=== PATIENT | female | born 1940 | race Hispanic/Latino ===

== ENCOUNTER 2017-07-28 14:08 | Inpatient (IN) | payer MEDICARE, BC ==
[2017-07-28 14:15] VITALS: BMI 23.3
--- NOTE | 2017-07-28 14:45 | ED PDOC ---
Arrival/HPI - General Chief Complaint: GI Problem Time Seen by Provider: 07/28/17 14:38 Historian: Patient - History of Present Illness Narrative History of Present Illness (Text): 07/28/17 14:39 Tarsha Zamorano is a 76 year old female who presents to the emergency department complaining of generalized weakness and near syncope for a few days. Patient states that she had many near falls in the past few days. Patient also notes that she experiences constipation, and urinary incontinence for a few weeks. Patient denies any fever, chills, chest pain, shortness of breath, or any other complaints. PMD: Dr. Daryn Brannon Time/Duration: < week Symptom Onset: Gradual Symptom Course: Unchanged Activities at Onset: Light Context: Home Past Medical History - Provider Review Nursing Documentation Reviewed: Yes - Infectious Disease Hx of Infectious Diseases: None - Reproductive Menopause: Yes Family/Social History - Physician Review Nursing Documentation Reviewed: Yes Family/Social History: No Known Family HX Allergies/Home Meds Allergies/Adverse Reactions: Allergies Unobtainable Allergy (Verified 07/28/17 15:28) Home Medications: Home Meds Medication Instructions Recorded Confirmed ALPRAZolam [Xanax] 0.5 mg PO Q6 PRN 07/28/17 07/28/17 Folic Acid [Folic Acid] 3 mg PO TID 07/28/17 07/28/17 Methotrexate Sodium [Trexall] 17.5 mg PO MON 07/28/17 07/28/17 Metoprolol Tartrate [Lopressor] 25 mg PO DAILY 07/28/17 07/28/17 Omeprazole [Omeprazole] 20 mg PO DAILY 07/28/17 07/28/17 Sertraline [Zoloft] 50 mg PO DAILY 07/28/17 07/28/17 Simvastatin [Zocor] 20 mg PO DAILY 07/28/17 07/28/17 traMADol [Ultram] 50 mg PO Q6 PRN 07/28/17 07/28/17 Review of Systems - Physician Review All systems were reviewed & negative as marked: Yes - Review of Systems Constitutional: Other (generalized weakness). absent: Fevers, Night Sweats Eyes: absent: Vision Changes ENT: absent: Hearing Changes Respiratory: absent: SOB, Cough Cardiovascular: absent: Chest Pain Gastrointestinal: absent: Abdominal Pain Genitourinary Female: absent: Dysuria, Frequency Musculoskeletal: absent: Arthralgias Skin: absent: Rash, Pruritis Neurological: Other (Near syncope). absent: Headache Endocrine: absent: Diaphoresis, Polyuria Hemo/Lymphatic: absent: Adenopathy Psychiatric: absent: Anxiety, Depression Physical Exam - Physical Exam Narrative Physical Exam (Text): Constitutional: No acute distress. Head: Normocephalic. Atraumatic. Eyes: PERRL. ENT: Moist mucous membranes. Neck: Supple. Cardiovascular: Regular rate. Chest: No tenderness. Respiratory: Clear to auscultation bilaterally. GI: Soft. Nontender. Nondistended. Back: No CVA tenderness. Musculoskeletal: No tenderness or swelling of extremities. Skin: No rash. Neurologic: Alert, no focal deficit. Vital Signs Reviewed: Yes Vital Signs Temp Pulse Resp BP Pulse Ox 07/28/17 18:14 69 18 130/65 98 07/28/17 16:33 71 18 135/61 98 07/28/17 15:40 79 18 138/64 98 07/28/17 14:15 98.6 F 82 18 140/63 99 Temperature: Afebrile Blood Pressure: Normal Pulse: Regular Respiratory Rate: Normal Appearance: Positive for: Well-Appearing, Non-Toxic, Comfortable Pain Distress: None Mental Status: Positive for: Alert and Oriented X 3 Medical Decision Making ED Course and Treatment: 07/28/17 14:46 Impression: 76 year old female who presents to the emergency department complaining of generalized weakness and near syncope for a few days. Plan: -- Reassess and disposition Progress Notes: 07/28/17 16:19 FINDINGS: LUNGS: Compressive atelectasis affecting left lower lobe and lingula. Less pronounced compressive atelectasis left upper lobe. PLEURA: Large left pleural effusion displacing mediastinal structures to the right. CARDIOVASCULAR: Normal. OSSEOUS STRUCTURES: No significant abnormalities. VISUALIZED UPPER ABDOMEN: Normal. OTHER FINDINGS: None. IMPRESSION: Large left pleural effusion, compressive atelectasis left lung. 07/28/17 18:40 PROCEDURE: CT Abdomen and Pelvis with contrast HISTORY: abd pain COMPARISON: None. TECHNIQUE: Contrast dose: 100 mL Omnipaque 350 359.65 Radiation dose: Total exam DLP = 359.65 mGy-cm. This CT exam was performed using one or more of the following dose reduction techniques: Automated exposure control, adjustment of the mA and/or kV according to patient size, and/or use of iterative reconstruction technique. FINDINGS: LOWER THORAX: Large left pleural effusion with complete atelectasis of left lower lobe and subsegmental atelectasis of left upper lobe. No right pleural effusion. Large right-sided hiatal hernia. Question is raised as to possible prior gastric pull up procedure. However, there is no central anastomosis evident. There is mural thickening of the herniated stomach. Consider evaluation with endoscopy to rule out neoplastic disease. LIVER: Numerous ill-defined hepatic masses likely representing hepatic metastasis. These vary in size. The largest measures approximately 5.2 cm in diameter peer no biliary dilatation. Smooth contour. Normal size. GALLBLADDER AND BILE DUCTS: Gallbladder not visualized. Suspect prior cholecystectomy. PANCREAS: Unremarkable. No gross lesion or ductal dilatation. SPLEEN: Unremarkable. ADRENALS: Unremarkable. No mass. KIDNEYS AND URETERS: Multiple bilateral renal cortical cysts. Moderate right renal atrophy. Nonspecific. No hydronephrosis. VASCULATURE: Fusiform infrarenal abdominal aortic aneurysm, 3.9 cm in greatest A-P diameter. Extensive mural thrombus. BOWEL: Unremarkable. No obstruction. No gross mural thickening. APPENDIX: Not definitely identified. No secondary findings. PERITONEUM: Intermediate density mass in the cul-de-sac, 4.3 x 5.8 x 6.3 cm. Uncertain significance. Correlate with ultrasound. Trace fluid in cul-de-sac. No generalized ascites. No pneumoperitoneum. LYMPH NODES: Unremarkable. No enlarged lymph nodes. BLADDER: Poorly distended REPRODUCTIVE: Unremarkable uterus BONES: Right hip arthroplasty. Grade 1 anterolisthesis L4-5 without spondylolysis. OTHER FINDINGS: None. IMPRESSION: Suspect widespread hepatic metastasis of uncertain primary. Large right-sided herniation of stomach versus gastric pull-up procedure. Mural thickening of the herniated stomach raises suspicion of gastritis versus neoplasm. Correlate with endoscopy. Large left pleural effusion with complete atelectasis of left lower lobe and subsegmental atelectasis of left upper lobe. Fusiform infrarenal abdominal aortic aneurysm. Moderate right renal atrophy. BI-RADS oral renal cortical cysts. Nonspecific circumscribed mass in cul-de-sac, 6.3 cm greatest dimension. Correlate with pelvic ultrasound examination. Dr. Brannon accepts patient to his service. Dr. Crocker consulted for GI. - Lab Interpretations Lab Results: 07/28/17 14:30 07/28/17 14:30 Lab Results 07/28/17 16:55: Urine Color Yellow, Urine Appearance Clear, Urine pH 6.5, Ur Specific [place] 1.020, Urine Protein 100 H, Urine Glucose (UA) Negative, Urine Ketones Negative, Urine Blood Small H, Urine Nitrate Negative, Urine Bilirubin Small H, Urine Urobilinogen 0.2, Ur Leukocyte Esterase Negative, Urine RBC 0 - 2 , Urine WBC Negative, Ur Epithelial Cells 1 - 3 07/28/17 14:49: POC Glucose (mg/dL) 93 07/28/17 14:30: Sodium 146, Potassium 3.9, Chloride 104, Carbon Dioxide 26, Anion Gap 20, BUN 25 H, Creatinine 1.2, Est GFR ( Amer) 53, Est GFR (Non- Af Amer) 43, Random Glucose 97, Calcium 10.0, Total Bilirubin 0.8, AST 63 H, ALT 28, Alkaline Phosphatase 169 H, Total Creatine Kinase 38, Troponin I < 0.01 , Total Protein 7.1, Albumin 3.7, Globulin 3.5, Albumin/Globulin Ratio 1.1, Lipase 60 07/28/17 14:30: PT 13.9 H, INR 1.21 H, APTT 36.6 H 07/28/17 14:30: WBC 15.2 H, RBC 4.43, Hgb 13.2, Hct 40.5, MCV 91.4, MCH 29.8, MCHC 32.6, RDW 17.7 H, Plt Count 395, MPV 9.2, Gran % 84.4 H, Lymph % (Auto) 7.2 L, [place] % (Auto) 7.6 H, Eos % (Auto) 0.5 L, Baso % (Auto) 0.3, Gran # 12.84 H, Lymph # (Auto) 1.1 L, [place] # (Auto) 1.2 H, Eos # (Auto) 0.1, Baso # (Auto) 0.05 - RAD Interpretation Radiology Orders: 07/28/17 15:33 CHEST PORTABLE [RAD] Stat 07/28/17 15:35 ABD & PELVIS IV CONTRAST ONLY [CT] Stat - Scribe Statement The provider has reviewed the documentation as recorded by the Lbibashok Adames Provider Scribe Attestation: All medical record entries made by the Scribe were at my direction and personally dictated by me. I have reviewed the chart and agree that the record accurately reflects my personal performance of the history, physical exam, medical decision making, and the department course for this patient. I have also personally directed, reviewed, and agree with the discharge instructions and disposition. Disposition/Present on Arrival - Present on Arrival Any Indicators Present on Arrival: No History of DVT/PE: No History of Uncontrolled Diabetes: No Urinary Catheter: No History of Decub. Ulcer: No History Surgical Site Infection Following: None - Disposition Have Diagnosis and Disposition been Completed?: Yes Diagnosis: Near syncope, Hepatic metastases Disposition: HOSPITALIZED Disposition Time: 17:50 Patient Plan: Admission Condition: GUARDED
[2017-07-28 15:49] LABS: BASO # 0.05 K/mm3 (0.0-2.0); BASO % 0.3 % (0.0-3.0); EOS # 0.1 (0.0-0.7); EOS % 0.5 % (1.5-5.0); GRAN # 12.84 (1.4-6.5); GRAN % 84.4 % (50.0-68.0); HEMOGLOBIN 13.2 g/dL (12.0-16.0); LYMPH # 1.1 (1.2-3.4); LYMPH % 7.2 % (22.0-35.0); MEAN CELL VOLUME 91.4 fl (80.0-105.0); MEAN CORPUSCULAR HEMOGLOBIN 29.8 pg (25.0-35.0); MEAN CORPUSCULAR HGB CONC 32.6 g/dl (31.0-37.0); MEAN PLATELET VOLUME 9.2 fl (7.0-11.0); MONO # 1.2 (0.1-0.6); MONO % 7.6 % (1.0-6.0); RBC 4.43 10^6/uL (3.5-6.1); RED CELL DISTRIBUTION WIDTH 17.7 % (11.5-14.5); WHITE BLOOD COUNT 15.2 10^3/ul (4.5-11.0)
[2017-07-28 15:57] LABS: INR 1.21 (0.93-1.08); PROTHROMBIN TIME 13.9 SECONDS (9.4-12.5)
[2017-07-28 15:58] LABS: PARTIAL THROMBOPLASTIN TIME 36.6 Seconds (25.1-36.5)
[2017-07-28 16:05] LABS: ALB/GLOB RATIO 1.1 (1.1-1.8); ALBUMIN 3.7 g/dL (3.0-4.8); ALT/SGPT 28 U/L (7-56); AST/SGOT 63 U/L (14-36); BLOOD UREA NITROGEN 25 mg/dL (7-21); GFR AFRICAN-AMERICAN 53; GFR NON-AFRICAN AMERICAN 43; LIPASE 60 U/L (23-300)
[2017-07-28 16:16] LABS: TROPONIN I < 0.01 ng/mL
--- NOTE | 2017-07-28 16:18 | RAD ---
HISTORY: near syncope COMPARISON: No prior. FINDINGS: LUNGS: Compressive atelectasis affecting left lower lobe and lingula. Less pronounced compressive atelectasis left upper lobe. PLEURA: Large left pleural effusion displacing mediastinal structures to the right. CARDIOVASCULAR: Normal. OSSEOUS STRUCTURES: No significant abnormalities. VISUALIZED UPPER ABDOMEN: Normal. OTHER FINDINGS: None. IMPRESSION: Large left pleural effusion, compressive atelectasis left lung.
[2017-07-28] MEDS ORDERED: Iohexol 350 MG/100 ML VIAL ONE (16:42)
[2017-07-28 17:22] LABS: PH,URINE 6.5 (4.7-8.0); URINE APPEARANCE CLEAR (CLEAR); URINE BILIRUBIN SMALL (NEGATIVE); URINE BLOOD SMALL (NEGATIVE); URINE COLOR YELLOW (YELLOW); URINE GLUCOSE (UA) NEGATIVE (NEGATIVE); URINE LEUKOCYTE ESTERASE NEGATIVE Leu/uL (NEGATIVE); URINE PROTEIN 100 mg/dL (<30 mg/dL); URINE UROBILINOGEN 0.2 E.U./dL (<1 E.U./dL)
[2017-07-28 17:31] LABS: URINE RBC 0 - 2 /hpf (0-2); URINE WBC NEGATIVE /hpf (0-6)
--- NOTE | 2017-07-28 17:47 | CT ---
PROCEDURE: CT Abdomen and Pelvis with contrast HISTORY: abd pain COMPARISON: None. TECHNIQUE: Contrast dose: 100 mL Omnipaque 350 359.65 Radiation dose: Total exam DLP = 359.65 mGy-cm. This CT exam was performed using one or more of the following dose reduction techniques: Automated exposure control, adjustment of the mA and/or kV according to patient size, and/or use of iterative reconstruction technique. FINDINGS: LOWER THORAX: Large left pleural effusion with complete atelectasis of left lower lobe and subsegmental atelectasis of left upper lobe. No right pleural effusion. Large right-sided hiatal hernia. Question is raised as to possible prior gastric pull up procedure. However, there is no central anastomosis evident. There is mural thickening of the herniated stomach. Consider evaluation with endoscopy to rule out neoplastic disease. LIVER: Numerous ill-defined hepatic masses likely representing hepatic metastasis. These vary in size. The largest measures approximately 5.2 cm in diameter peer no biliary dilatation. Smooth contour. Normal size. GALLBLADDER AND BILE DUCTS: Gallbladder not visualized. Suspect prior cholecystectomy. PANCREAS: Unremarkable. No gross lesion or ductal dilatation. SPLEEN: Unremarkable. ADRENALS: Unremarkable. No mass. KIDNEYS AND URETERS: Multiple bilateral renal cortical cysts. Moderate right renal atrophy. Nonspecific. No hydronephrosis. VASCULATURE: Fusiform infrarenal abdominal aortic aneurysm, 3.9 cm in greatest A-P diameter. Extensive mural thrombus. BOWEL: Unremarkable. No obstruction. No gross mural thickening. APPENDIX: Not definitely identified. No secondary findings. PERITONEUM: Intermediate density mass in the cul-de-sac, 4.3 x 5.8 x 6.3 cm. Uncertain significance. Correlate with ultrasound. Trace fluid in cul-de-sac. No generalized ascites. No pneumoperitoneum. LYMPH NODES: Unremarkable. No enlarged lymph nodes. BLADDER: Poorly distended REPRODUCTIVE: Unremarkable uterus BONES: Right hip arthroplasty. Grade 1 anterolisthesis L4-5 without spondylolysis. OTHER FINDINGS: None. IMPRESSION: Suspect widespread hepatic metastasis of uncertain primary. Large right-sided herniation of stomach versus gastric pull-up procedure. Mural thickening of the herniated stomach raises suspicion of gastritis versus neoplasm. Correlate with endoscopy. Large left pleural effusion with complete atelectasis of left lower lobe and subsegmental atelectasis of left upper lobe. Fusiform infrarenal abdominal aortic aneurysm. Moderate right renal atrophy. BI-RADS oral renal cortical cysts. Nonspecific circumscribed mass in cul-de-sac, 6.3 cm greatest dimension. Correlate with pelvic ultrasound examination.
[2017-07-29] MEDS: Pantoprazole 40 mg EC Tab PO SCH (08:46)
--- NOTE | 2017-07-29 12:55 | CARD ---
APPROVED REPORT EKG Measurement Heart [id number] DC [id number] [id number] <Conclusion> Sinus rhythm.
--- NOTE | 2017-07-29 17:55 | CT ---
PROCEDURE: CT chest dated 07/29/2017. HISTORY: Left lung collapse as per Obi COMPARISON: Comparison made with chest radiograph 07/28/2017. Comparison also made with CT scan of the abdomen pelvis dated 07/28/2017 which imaged both lung bases. TECHNIQUE: Contiguous axial images were obtained through the chest without intravenous contrast enhancement. Sagittal and coronal reconstructions were performed. Radiation dose (DLP): 1st mGy-cm. This CT exam was performed using one or more of the following dose reduction techniques: Automated exposure control, adjustment of the mA and/or kV according to patient size, and/or use of iterative reconstruction technique. FINDINGS: LUNGS: The current study reveals large left-sided effusion possibly with questionable of loculated components at the level of the upper lobe/lung apex. . There is only minor atelectatic component of. These changes in factor seen to better advantage on prior contrast-enhanced CT scan of the abdomen and pelvis which imaged most of the lung medrano are demonstrated most of the opacification is large effusion with smaller component of atelectatic lung. There also appears to be some nodular scarring changes left lung apex. Centrilobular emphysematous changes are also present. Localized eventration and/or large paraesophageal hernia right medial lung base through which extends a good portion of the stomach. . There are multiple nodular densities seen throughout the right mid to lower lung field likely representing metastatic disease. No evidence of pneumothorax. MEDIASTINUM: There is shift of the mediastinum from left to right due the large effusion. Heart size is within range of normal. Few small nonspecific mediastinal lymph nodes are present. Mass lesion in the left hilar region is less well seen due to the lack of circulating intravenous contrast material on this exam. . Note that this lesion appears to lower lobe bronchi. No evidence of pneumothorax. BONES: Multilevel degenerative spondylosis of the thoracic spine. No suspicious lytic or blastic lesions are identified within the thoracic or visualized portions of the lower cervical upper/ lumbar spine. Mild diffuse demineralization. UPPER ABDOMEN: Previously noted multiple on low-attenuation lesions (presumed metastatic deposits) scattered throughout the hepatic parenchyma are less well seen on this study as compared the prior exam due to the lack of circulating intravenous contrast material on the current exam. OTHER FINDINGS: Enlarged heterogeneous left lobe thyroid gland with a few scattered calcifications. . . There is also of localized enlargement of the isthmus. Right lobe thyroid gland is slightly heterogeneous as well. Followup thyroid ultrasound could be performed for further evaluation. IMPRESSION: Large left-sided effusion with smaller of atelectatic component in the left upper and lower lobes. There appears to be a large masslike lesion in the left hilar region seen to better advantage on prior CT scan due to the lack of circulating intravenous contrast material on this CT chest. The there is resultant left-sided mediastinal shift. Several small nodular densities scattered throughout the right lower lobe likely representing metastatic deposits. Centrilobular emphysematous changes. Multiple metastatic lesions scattered throughout the hepatic parenchyma less well seen also due the lack of circulating intravenous contrast material on the current study See above discussion for additional details and findings.
--- NOTE | 2017-07-30 02:05 | PN ---
DATE: 07/29/2017 The patient is a 76-year-old female who presented to the emergency room complaining of generalized weakness. Workup showed some elevation of her liver enzymes. Chest x-ray showed a large left-sided pleural effusion and CAT scan of the abdomen showed multiple hepatic metastatic lesions. There is a thickening in the stomach wall. There was a mass in the cul-de-sac. There was an infrarenal abdominal aortic aneurysm. When seen today, the patient is in bed. She is awake, alert, and oriented. She is very emotional, tearful at times. She understands her diagnosis. I explained to the patient that we certainly have to go through the steps to find the source of these metastatic lesions in her liver. The patient will undergo ultrasound of the abdomen and pelvis to better understand the cul-de-sac mass. The patient will be evaluated by milled rice broker, Dr. Ochoa, and Dr. Andrews. The patient will be reevaluated in the morning. Eddie Brannon MD
--- NOTE | 2017-07-30 02:54 | HP ---
ADMITTING HISTORY AND PHYSICAL HISTORY OF PRESENT ILLNESS: The patient is a 76-year-old female who has been experiencing increasing weakness over the past 3 weeks. As per the patient, she was barely able to ambulate in her home, holding onto taylor. Finally, she asked a friend to bring her to the hospital where she is evaluated and admitted. PAST MEDICAL HISTORY: The patient is known to have a past medical history positive for rheumatoid arthritis, hypertension, anxiety and depression and hyperlipidemia. MEDICATIONS AT THE TIME OF ADMISSION: Include methotrexate 2.5 mg, she takes 7 tablets every Monday; metoprolol tartrate 25 mg once a day; Zoloft 50 mg once a day, simvastatin 20 mg once a day; omeprazole 20 mg once a day. ALLERGIES: SHE HAS NO KNOWN MEDICAL ALLERGIES. SOCIAL HISTORY: She is a . Her daughter lives in [place]. She is a former smoker and nonalcoholic drinker. PHYSICAL EXAMINATION: HEENT: The head, eyes, ears, nose and throat a re unremarkable. NECK: Supple with no lymphadenopathy. No goiter. LUNGS: On pulmonary auscultation, there is dullness over the left lower lung area. The left upper lung and right-sided is clear. HEART: Regular. No murmurs are appreciated. Abdomen is soft and nontender. EXTREMITIES: Free of cyanosis, clubbing or edema. NEUROLOGICALLY: The patient is awake, alert and oriented with no focal neurological signs. LABORATORY DATA: Laboratory studies show the white blood cell count to be 15.2, hemoglobin and hematocrit are 13.2 and 40.5 respectively, platelet count is 395. Sodium is 146, potassium 3.9, blood urea nitrogen is 25, creatinine 1.2, glucose is 97, AST is 63, ALT is 28 and alkaline phosphatase is elevated at 169. Her blood pressure is 130/65 and heart rate is 88. Chest x-ray showed large left pleural effusion. CAT scan of the abdomen shows a right-sided hiatal hernia, multiple hepatic metastatic lesions. There is a thickening in the area of the stomach. There is an infrarenal abdominal aortic aneurysm. There seems to be a 4.3 x 6.3 x 6.3 mass in the cul-de-sac. EKG shows regular sinus rhythm with PVCs. IMPRESSION: The patient is admitted with a diagnosis of metastatic disease. Rule out pelvic, rule out gastrointestinal. Dr. Crocker, the senior network engineer is asked to consult. I spoke with Dr. Crocker later on today. He was suggesting Pulmonology consult because of the pleural effusion and possibly after the weekend, Dr. Francis Holcomb to perform a thoracentesis. The patient is to be reevaluated in the morning. Eddie Brannon MD
--- NOTE | 2017-07-30 06:57 | CON ---
DATE: 07/29/2017 This patient was seen and evaluated earlier. Patient's daughter was at bedside. THE REASON FOR CONSULTATION: Abnormal CAT scan, gastric wall thickening. HISTORY OF PRESENT ILLNESS: This 76-year-old patient with past medical history of rheumatoid arthritis on methotrexate more than 5 years, presented with near syncopal episode and weakness for the past few days. In the ER, she was found to have a large left pleural effusion and in the ER, she had a CT scan done showed multiple findings including a large pleural effusion and large hiatus hernia with gastric wall thickening. GI consult was requested to evaluate this. Patient also was found to have multiple hepatic lesion. Patient denies any history of difficulty in swallowing. No complaints of any abdominal pain. She does complain of constipation. She does remember having endoscopy, but she did have endoscopy many years ago. PAST MEDICAL HISTORY: Other past medical history is significant as above. Patient has a history of goiter, abdominal aortic aneurysm, anxiety, depression. SOCIAL HISTORY: Positive for smoking about one pack in every 3 days now and she has been smoking for more than 30 years. Denies alcohol use. FAMILY HISTORY: Noncontributory. REVIEW OF SYSTEMS: Positive as above. History of arthritis, reflux symptoms for which . Other systems reviewed and negative. PHYSICAL EXAMINATION: GENERAL: Patient is lying on the bed, not in acute distress. VITAL SIGNS: Pulse 84 per minute ,blood pressure is 137/74, temperature is 98.3, respirations 20. HEENT: Atraumatic and anicteric. NECK: Supple. HEART: S1 and S2 heard. LUNGS: Reduced air entry on the left side. ABDOMEN: Soft. There is no tenderness. EXTREMITIES: No cyanosis. No clubbing. NEUROLOGIC: She is alert, oriented. Moves all the extremities. LABORATORY DATA: WBC count 14.5, 15.2; hemoglobin 13.2; hematocrit 40.5; platelets 395. Chemistries: AST 63, ALT 28, alkaline phosphatase 169, BUN 25, creatinine 1.2. The patient did have a CT scan of the abdomen and pelvis done, which was reviewed. It showed large left pleural effusion and a complete atelectasis of the lower lobe and also partial left upper lobe. Multiple hepatic lesions noticed in the liver suggestive of possible metastasis. There is also a density noticed in the cul-de-sac measuring about 5.8 x 4.3 cm and also aortic aneurysm 3.8 cm. IMPRESSION: This 76-year-old patient admitted with weakness and near syncopal episode and she was found to have a large left-sided pleural effusion. There is a large hiatus hernia with thickening of the stomach, most of the stomach appears to be in the chest, suggestive of paraesophageal hernia. Also, has a soft tissue density in the pelvis. The differential diagnoses in her case should include: 1. Hepatic lesions are more suggestive of metastatic disease, rule out lung primary, patient has a large pleural effusion and atelectasis. 2. Density in the pelvis. Would benefit from the pelvic sonogram rule out ovarian lesion. 3. Large hiatus hernia, paraesophageal with gastric wall thickening. 4. Abdominal aortic aneurysm. RECOMMENDATION: 1. Given her CT of the chest. 2. Request Pulmonary consult. 3. IR evaluation for thoracentesis and cell for cytology. 4. Patient would benefit from upper GI endoscopy to further evaluation; however, we will defer till the pleural effusion is taken care of in view of the large pleural effusion. Patient does carry some increased risk. We will discuss with counter person and also the primary before scheduling for any endoscopic evaluation. 5. We had a discussion with the patient's daughter. Patient does not have any molar, but she was able to chew the food well and eat and the present plan, the patient does not want any pureed diet and the diet has been changed to soft diet, advised to chew well and eat. 6. hepatic lesions, rule out parasitic disease, would rule out any primary. We will request for hepatitis profile, alpha fetoprotein and also the tumor marker CA19-9, CEA levels. We will continue to closely follow up her care and suggest further management based on the clinical course. Nkechi Crocker MD BILL
[2017-07-30 07:51] LABS: BASO # 0.03 K/mm3 (0.0-2.0); BASO % 0.3 % (0.0-3.0); EOS # 0.2 (0.0-0.7); EOS % 1.6 % (1.5-5.0); GRAN # 8.76 (1.4-6.5); GRAN % 75.9 % (50.0-68.0); HEMOGLOBIN 12.1 g/dL (12.0-16.0); LYMPH # 1.6 (1.2-3.4); LYMPH % 14.1 % (22.0-35.0); MEAN CELL VOLUME 90.8 fl (80.0-105.0); MEAN CORPUSCULAR HEMOGLOBIN 28.6 pg (25.0-35.0); MEAN CORPUSCULAR HGB CONC 31.5 g/dl (31.0-37.0); MEAN PLATELET VOLUME 9.4 fl (7.0-11.0); MONO # 0.9 (0.1-0.6); MONO % 8.1 % (1.0-6.0); RBC 4.23 10^6/uL (3.5-6.1); RED CELL DISTRIBUTION WIDTH 17.6 % (11.5-14.5); WHITE BLOOD COUNT 11.5 10^3/ul (4.5-11.0)
[2017-07-30 08:07] LABS: ALBUMIN 3.2 g/dL (3.0-4.8); CALCIUM 9.4 mg/dL (8.4-10.5)
[2017-07-30] MEDS: Pantoprazole 40 mg EC Tab PO SCH (08:57)
--- NOTE | 2017-07-30 14:52 | CON ---
DATE: 07/30/2017 PULMONARY CONSULTATION We were asked by Dr. Brannon, maintenance inspector, to evaluate and treat this 76-year-old female who was admitted to [facility] with history of extreme fatigue and near syncope. The patient reported no cough, no sputum production, no hemoptysis, poor appetite, shortness of breath on exertion and extreme fatigue. That was going on for approximately two weeks, but becoming worse everyday. PAST MEDICAL HISTORY: She has a history of rheumatoid arthritis, hypertension, anxiety, depression and hyperlipidemia. She was taking methotrexate for the rheumatoid arthritis, other medications. ALLERGIES: SHE HAS NO KNOWN ALLERGIES. FAMILY HISTORY: Negative for inheritable diseases. SOCIAL HISTORY: She is a . She is a former smoker, quit years ago. She is nondrinker. REVIEW OF SYSTEMS: Was conducted by reviewing all sources. General: Positive for fatigue. Pulmonary: See history of present illness. Cardiovascular: No chest pain. No palpitations. Gastrointestinal: No nausea, vomiting or diarrhea. The rest of the systems were reviewed and found to be negative. PHYSICAL EXAMINATION: GENERAL: The patient is awake, alert, in no acute distress. HEENT: Examination of head, ear, nose and throat is within normal limits. NECK: Supple with no jugular vein distention. CHEST: Symmetrical. HEART: S1, S2. No S3. Regular. PULMONARY: Markedly diminished breath sounds on the left side with some bronchial breath sounds and dullness to percussion in lower left hemithorax. No crackles, no wheezing appreciated. GASTROINTESTINAL: Soft, nontender. No organomegaly. EXTREMITIES: No pedal edema. No cyanosis. NEUROLOGIC: Limited at the present time. SKIN: No acute skin rash. LABORATORY DATA: Additional data reviewed. I personally reviewed the CT scan of chest done yesterday, which revealed large left pleural effusions with multiple loculations and possibly, left hilar mass and a few pleural based masses, however, those are difficult to distinguish from loculations of effusions. Abdomen shows multiple lesions in the liver suspicious for metastases. There is a thickening of an area of the stomach. There seemed to be a 4.3 x 6.3 x 6.3 mass in the cul-de-sac. I reviewed the patient's laboratory data, so far did not reveal a true source of metastatic disease. I will advise performance of tumor markers. ASSESSMENT: 1. Large left-sided pleural effusion, suspect malignancy. 2. Former smoker. No evidence of obstructive airways disease. 3. Multiple hepatic lesions suspicious for metastases. 4. Mass in the lower abdomen, cul-de-sac, suspicious for malignancy. PLAN: As far as left pleural effusion, the patient is basically asymptomatic. The best procedure for evacuation as well as diagnostics is video assisted thoracoscopy with chest tube placement for drainage that can be changed later for Pleurx if effusion reoccurs so that is the better way to manage her effusion. I will discuss case with Dr. Crocker who is present who will conduct GI workup since the findings are thickened wall of the stomach as well as a mass in the cul-de-sac. Our thoughts and plans are explained to the patient. Dilip Vaughan MD
--- NOTE | 2017-07-30 15:04 | US ---
HISTORY: Mass in cul-de-sac COMPARISON: Comparison made with CT scan of the abdomen and pelvis dated 07/28/2017. TECHNIQUE: Sonographic evaluation of the abdomen. FINDINGS: LIVER: Measures 15.5 cm. . Previously noted multiple varying sized low-attenuation lesions scattered throughout the hepatic parenchyma too numerous and difficult to define on ultrasound. Please refer to CT scan for additional details. Findings most consistent with metastatic disease. No gross intrahepatic. No mass. No intrahepatic bile duct dilatation. GALLBLADDER: Cholecystectomy COMMON BILE DUCT: Measures 5.7 mm. No stones. No dilatation. PANCREAS: Unremarkable as visualized. No mass. No ductal dilatation. RIGHT KIDNEY: Right kidney is atrophic with significant cortical volume loss compared the left side. Right kidney measures approximately 8.7 x 3.0 x 4.6cm. At least 2 right-sided cysts are present the 1st and largest measuring 3.3 cm arising from the anterior midpole and the 2nd arising from the upper pole measuring 2.2 cm in greatest dimension. LEFT KIDNEY: Measures 11.0 x 5.0 x 5.6cm. Normal echogenicity. No calculus, mass, or hydronephrosis. Left renal cyst seen along the anterior cortex mid to lower pole left kidney not appreciated on this exam. SPLEEN: Normal in size and contour. No mass. AORTA: No aneurysmal dilatation. IVC: Unremarkable. OTHER FINDINGS: None. IMPRESSION: Numerous ill-defined lesions seen scattered throughout the hepatic parenchyma consistent with metastatic disease. Cholecystectomy. Atrophic right kidney with at least 2 right renal cysts.
--- NOTE | 2017-07-30 17:35 | PN ---
DATE: 07/30/2017 SUBJECTIVE: This patient was seen and evaluated earlier today. The patient was seen yesterday. Consult was dictated by mistake. It was under Dr. Loya's name. We will request the medical records to correct it. This consult was dictated by me and it is erroneously under Dr. Loya's name. This patient was seen in followup today. No complaints of any abdominal pain. PHYSICAL EXAMINATION VITAL SIGNS: Temperature is 98, blood pressure is 145/75, respirations 20, O2 saturation is 95%. HEENT: Atraumatic, anicteric. NECK: Supple. HEART: S1 and S2 heard. LUNGS: There is decreased air entry on the left side. There is a tracheal shift to the right side. ABDOMEN: Soft. No tenderness. EXTREMITIES: No cyanosis, no clubbing. NEUROLOGIC: Alert, oriented. Moves all the extremities. LABORATORY DATA: WBC 11.5, hemoglobin 12.1, hematocrit 38.4, platelets 355. Chemistry shows AST 62, ALT 30, alkaline phosphatase 152. Tumor markers pending. IMPRESSION: This is a 76-year-old patient with rheumatoid arthritis, on methotrexate, admitted with near syncopal episode and weakness. The patient was found to have a large pleural effusion on the left side with shift of the trachea to the right side and collapse of the lower lobe. The patient has multiple hepatic lesions noticed and also lesion in the cul-de-sac. The patient also found to have a large hiatus hernia, paraesophageal type, in the chest with thickening of the gastric wall. I did discuss with Dr. Vaughan, inspector general, today. He suggested thoracentesis with catheter drainage. The concern is endoscopy timing, would consider EGD after the thoracentesis. We will also follow up the tumor markers. I did have a detail discussion with the patient's daughter. The patient is able to tolerate a soft diet. We will continue to closely follow up. Thank you very much for allowing us to participate in the care of the patient. Nkechi Crocker MD
[2017-07-31 08:09] LABS: HEPATITIS B SURFACE AG Negative (NEGATIVE)
[2017-07-31 08:14] LABS: HEPATITIS A IGM NEGATIVE (NEGATIVE); HEPATITIS B CORE AB NEGATIVE (NEGATIVE)
[2017-07-31 08:26] LABS: HEPATITIS C ANTIBODY NEGATIVE (NEGATIVE)
[2017-07-31] MEDS: Pantoprazole 40 mg EC Tab PO SCH (08:30)
[2017-07-31] MEDS ORDERED: Magnesium Hydroxide Susp 30 ml UD PO ONE (12:20)
[2017-07-31] MEDS ORDERED: Potassium Chloride 20 mEq ER Tab PO STA (23:18)
--- NOTE | 2017-07-31 23:19 | CP.PCM.PN ---
Subjective - Date & Time of Evaluation Date of Evaluation: 07/31/17 Time of Evaluation: 23:19 - Subjective Subjective: S:Nurse calls and tells that K level was 3.3 mEq. Patient was seen. Has no acute symptoms now. Denies having diarrhoea, vomiting. Denies history of low level of potassium. Medical record was reviewed. O: Last Vital Signs 3 Temp 99.6 F 07/31/17 16:28 Pulse 86 07/31/17 22:00 Resp 20 07/31/17 16:28 BP 116/66 07/31/17 16:28 Pulse Ox 95 07/31/17 16:28 Awake, alert, not in distress. LUNGS:Normal breathing pattern. A: Hypokalemia. P: K-Dur 40 mEq PO x 1. Objective - Vital Signs/Intake and Output Vital Signs (last 24 hours): Temp Pulse Resp BP Pulse Ox 99.6 F 78 20 116/66 95 07/31/17 16:28 07/31/17 18:00 07/31/17 16:28 07/31/17 16:28 07/31/17 16:28 Intake and Output: 07/31/17 08/01/17 18:59 06:59 Intake Total 480 240 Output Total 200 Balance 280 240 - Medications Medications: Current Medications Alprazolam (Xanax) 0.5 mg PO Q6 PRN; Protocol PRN Reason: Anxiety Last Admin: 07/31/17 21:54 Dose: 0.5 mg Atorvastatin Calcium (Lipitor) 10 mg PO DIN [facility] Last Admin: 07/31/17 17:00 Dose: 10 mg Folic Acid (Folic Acid) 1 mg PO TID [facility] Last Admin: 07/31/17 17:00 Dose: 1 mg Metoprolol Tartrate (Lopressor) 25 mg PO DAILY [facility] Last Admin: 07/31/17 09:45 Dose: 25 mg Methotrexate Sodium (2.5mg (Homemed)) 17.5 mg PO LAURY [facility] Pantoprazole Sodium (Protonix Ec Tab) 40 mg PO ACB [facility] Last Admin: 07/31/17 08:30 Dose: 40 mg Sertraline HCl (Zoloft) 50 mg PO DAILY [facility] Last Admin: 07/31/17 09:46 Dose: 50 mg Tramadol HCl (Ultram) 50 mg PO Q6 PRN PRN Reason: Pain, Mild (1-3) Last Admin: 07/31/17 21:53 Dose: 50 mg - Labs Labs: 07/30/17 07:30 07/30/17 07:30 PT 13.9 SECONDS (9.4-12.5) H 07/28/17 14:30 INR 1.21 (0.93-1.08) H 07/28/17 14:30 APTT 36.6 Seconds (25.1-36.5) H 07/28/17 14:30
--- NOTE | 2017-08-01 09:15 | PN ---
DATE: 07/31/2017 PULMONARY PROGRESS NOTE SUBJECTIVE: The patient was seen and examined at bedside. She is not in respiratory distress. PHYSICAL EXAMINATION: VITAL SIGNS: Temperature is 98, pulse is 95, respirations 20, pulse oximetry is 95% on room air, blood pressure is 127/81. HEENT: Examination of head, ears, nose, and throat is within normal limits. NECK: Supple with no jugular vein distentions. CARDIOVASCULAR: S1, S2. No S3. Regular. PULMONARY: Markedly diminished breath sounds on left side with dullness and diminished breath sounds in the left lung. GASTROINTESTINAL: Soft, nontender. No organomegaly. EXTREMITIES: No pedal edema. SKIN: Clear with no cyanosis and no skin rashes. NEUROLOGIC: No focal deficits. ASSESSMENT: 1. Large left pleural effusion, rule out left-sided pleural based masses. 2. Hepatic lesion suspicious for metastatic disease. 3. Pelvic mass. 4. Thickened wall of the stomach. Rule out gastric malignancy. DISCUSSION: I have discussed the case with Dr. Crocker who is concerned of the planned upper endoscopy will run into problems due to large pleural effusion and mediastinal shift as well as large hiatal hernia. I suggested drainage of pleural effusion, the fastest way is through interventional radiology and small catheter that can be changed to PleurX catheter. Alternatively, video-assisted thoracoscopy with biopsies of pleural based masses can be undertaken. This was reported and suggested via phone call to Dr. Eddie Brannon's service. We will await decision of primary together with family which procedure should be undertaken. I reviewed her today's abdominal ultrasound that confirmed her existence of hepatic lesion suspicious for metastatic disease. The pelvic ultrasound was not done. Dilip Vaughan MD
--- NOTE | 2017-08-01 09:46 | PN ---
DATE: 08/01/2017 PULMONARY PROGRESS NOTE SUBJECTIVE: Ms. Zamorano is a raudel 76-year-old woman who is very nervous. She is in her room, worrying about upcoming procedure. She has been scheduled to have a significant amount of fluid drain from her chest and then the placement of a PleurX catheter by Dr. Francis Holcomb. The patient is asking questions about the procedure as she has not yet had an opportunity to discuss this with the attending physician or Dr. Holcomb. PHYSICAL EXAMINATION: GENERAL: The patient is comfortable at rest, in no acute distress. VITAL SIGNS: Stable, blood pressure 130/70, heart rate 70, respiratory rate is 18. HEENT: Normocephalic, atraumatic. NECK: Supple. No JVD. No lymphadenopathy. HEART: Regular rhythm. S1, S2 without murmur, gallop or rub. CHEST: Decreased breath sounds at the left base with some bronchial breath sounds in addition over the same area. No rales or wheezing is appreciated. ABDOMEN: Soft. Bowel sounds normoactive without mass, guarding or rebound. No organomegaly. EXTREMITIES: Reveal no clubbing, cyanosis or edema. NEUROLOGIC: No focal findings. SKIN: Warm. No rash or excoriation. LABORATORY DATA: Laboratory studies have been reviewed as well. The CT of the chest was evaluated with a large left pleural effusion with multiple loculations, possible left hilar mass with pleural based masses as well. IMPRESSION: 1. Large left pleural effusion. 2. Suspicious for malignant pleural effusion with masses in the hilum, pleural based and intrapulmonary. 3. Former smoker. 4. No evidence of chronic obstructive pulmonary disease. 5. Suspicious for metastatic disease to the liver and abdomen. PLAN: Thoracentesis with placement of Pleur-Evac for continued drainage. Once the drainage is complete, a repeat CAT scan of the chest will be required to evaluate further. Hopefully, a large quantity of fluid can be sent to the laboratory for evaluation. Cytopathology may be sufficient in giving us a tissue diagnosis. If not, directed CT-guided biopsy to one of the pleural based lesions is probably the easiest approach. We will be able to discuss this with the attending physician once the fluid has been removed and we get a better sense once the etiology has been identified. We will be happy to monitor this patient closely with you. There is no acute respiratory distress. Removal of this fluid was not urgent yesterday nor today, but she is planned to have this procedure later on today. Thank you for the opportunity to evaluate this raudel patient. Carson Ochoa MD
[2017-08-01] MEDS: Pantoprazole 40 mg EC Tab PO SCH (10:10)
--- NOTE | 2017-08-01 16:02 | CP.PCM.PN ---
<Obi,Nathanielvil V - Last Filed: 08/01/17 22:12> Objective - Vital Signs/Intake and Output Vital Signs (last 24 hours): Temp Pulse Resp BP Pulse Ox 98.5 F 80 20 130/75 92 L 08/01/17 18:00 08/01/17 18:00 08/01/17 18:00 08/01/17 18:00 08/01/17 18:00 Intake and Output: 08/01/17 08/02/17 18:59 06:59 Intake Total 845 Balance 845 - Medications Medications: Current Medications Alprazolam (Xanax) 0.5 mg PO Q6 PRN; Protocol PRN Reason: Anxiety Last Admin: 08/01/17 15:36 Dose: 0.5 mg Atorvastatin Calcium (Lipitor) 10 mg PO DIN [facility] Last Admin: 08/01/17 19:39 Dose: 10 mg Folic Acid (Folic Acid) 1 mg PO TID [facility] Last Admin: 08/01/17 19:39 Dose: 1 mg Sodium Chloride (Sodium Chloride 0.45%) 1,000 mls @ 80 mls/hr IV .[id number] [facility] Stop: 08/03/17 08:00 Last Admin: 08/01/17 19:39 Dose: 80 mls/hr Metoprolol Tartrate (Lopressor) 25 mg PO DAILY [facility] Last Admin: 08/01/17 10:10 Dose: 25 mg Methotrexate Sodium (2.5mg (Homemed)) 17.5 mg PO LAURY [facility] Pantoprazole Sodium (Protonix Ec Tab) 40 mg PO ACB [facility] Last Admin: 08/01/17 10:10 Dose: 40 mg Sertraline HCl (Zoloft) 50 mg PO DAILY [facility] Last Admin: 08/01/17 10:10 Dose: 50 mg Tramadol HCl (Ultram) 50 mg PO Q6 PRN PRN Reason: Pain, Mild (1-3) Last Admin: 07/31/17 21:53 Dose: 50 mg - Labs Labs: 07/30/17 07:30 07/30/17 07:30 PT 13.9 SECONDS (9.4-12.5) H 07/28/17 14:30 INR 1.21 (0.93-1.08) H 07/28/17 14:30 APTT 36.6 Seconds (25.1-36.5) H 07/28/17 14:30 Attending/Attestation - Attestation I have personally seen and examined this patient.: Yes I have fully participated in the care of the patient.: Yes I have reviewed all pertinent clinical information, including history, physical exam and plan: Yes Notes (Text): This is an addendum to GI progress report dictated by Korina Gibson APN.The patient was seen and examined earlier. Medical records, lab studies, imagings were reviewed. Last 24 hours events reviewed. Agreed with the above treatment plan as outlined in Korina Gibson APN's notes with the addition of the following denies any abdominal pain no abdominal pain abdomen soft no tenderness Status post transvaginal sonogram showed a large pelvic mass Plan for thoracentesis tomor Consider EGD after that Follow-up tumor markers he related CA 125 CA 199 Patient's daughter was at at the time of examination 08/01/17 22:15 <Korina Gibson - Last Filed: 08/03/17 13:54> Subjective - Date & Time of Evaluation Date of Evaluation: 08/01/17 Time of Evaluation: 10:50 - Subjective Subjective: Seen and examined at the bedside earlier today, chart review. Patient denies shortness of breath or chest pain. Had formed stool yesterday, no reports of overt GI bleed. Patient awaiting thoracentesis. Objective - Vital Signs/Intake and Output Vital Signs (last 24 hours): Temp Pulse Resp BP Pulse Ox 98.2 F 83 20 132/91 H 92 L 08/01/17 07:39 08/01/17 14:00 08/01/17 07:39 08/01/17 10:10 08/01/17 07:39 Intake and Output: 08/01/17 08/01/17 06:59 18:59 Intake Total 240 845 Balance 240 845 - Medications Medications: Current Medications Alprazolam (Xanax) 0.5 mg PO Q6 PRN; Protocol PRN Reason: Anxiety Last Admin: 08/01/17 15:36 Dose: 0.5 mg Atorvastatin Calcium (Lipitor) 10 mg PO DIN [facility] Last Admin: 07/31/17 17:00 Dose: 10 mg Folic Acid (Folic Acid) 1 mg PO TID [facility] Last Admin: 08/01/17 15:37 Dose: 1 mg Metoprolol Tartrate (Lopressor) 25 mg PO DAILY [facility] Last Admin: 08/01/17 10:10 Dose: 25 mg Methotrexate Sodium (2.5mg (Homemed)) 17.5 mg PO LAURY [facility] Pantoprazole Sodium (Protonix Ec Tab) 40 mg PO ACB [facility] Last Admin: 08/01/17 10:10 Dose: 40 mg Sertraline HCl (Zoloft) 50 mg PO DAILY [facility] Last Admin: 08/01/17 10:10 Dose: 50 mg Tramadol HCl (Ultram) 50 mg PO Q6 PRN PRN Reason: Pain, Mild (1-3) Last Admin: 07/31/17 21:53 Dose: 50 mg - Labs Labs: 07/30/17 07:30 07/30/17 07:30 PT 13.9 SECONDS (9.4-12.5) H 07/28/17 14:30 INR 1.21 (0.93-1.08) H 07/28/17 14:30 APTT 36.6 Seconds (25.1-36.5) H 07/28/17 14:30 - Constitutional Appears: No Acute Distress - Head Exam Head Exam: NORMOCEPHALIC - Eye Exam Eye Exam: Normal appearance. absent: Scleral icterus - ENT Exam ENT Exam: Mucous Membranes Moist - Respiratory Exam Respiratory Exam: NORMAL BREATHING PATTERN. absent: Respiratory Distress - Cardiovascular Exam Cardiovascular Exam: +S1, +S2 - GI/Abdominal Exam GI & Abdominal Exam: Soft, Normal Bowel Sounds. absent: Guarding, Tenderness, Rebound - Extremities Exam Extremities Exam: absent: Calf Tenderness - Neurological Exam Neurological Exam: Alert, Oriented x3 - Skin Skin Exam: Dry, Warm Assessment and Plan - Assessment and Plan (Free Text) Assessment: Assessment: Large hiatal hernia, paraesophageal type Hepatic lesion, with cul-de-sac lesion Large left-sided pool effusion Near-syncope/weakness Rheumatoid arthritis on methotrexate Plan: Plan for endoscopy after thoracentesis Continue PPI Diet as tolerated Seen and discussed with Dr. Crocker.
--- NOTE | 2017-08-01 16:04 | PN ---
DATE: 07/31/2017 DAILY PROGRESS NOTE SUBJECTIVE: The patient is a 76-year-old female who was admitted with a complaint of generalized weakness. She has essentially negative past medical history except for that of rheumatoid arthritis, hypertension and anxiety and depression; however, she was found to have multiple metastatic lesions in her liver. There was a thickening in the stomach wall. There was a mass in the cul-de-sac and there was a large left-sided pleural effusion. The patient is very upset and emotional about her diagnosis, frequently breaking into tears. When seen today, she is comfortable. She is upset that she is not getting her pain medicine and/or anxiety medicine fast enough for her. PHYSICAL EXAMINATION: HEART: Regular. LUNGS: Clear. ABDOMEN: Soft and nontender. She was seen by Dr. Crocker, the conference coordinator and she was also seen by Dr. Vaughan, the monitoring and evaluation advisor along with Dr. Ochoa and Dr. Andrews. We are asking Dr. Holcomb to consult on the patient today for a thoracentesis of the pleural effusion. We are suspicious of a thickening of the gastric wall seen on CAT scan. We were also suspicious of a mass in the cul-de-sac. Tumor markers have shown elevations in CA 15-3, CA 19-9, CA 125, which could be suggestive of ovarian CA. The patient underwent ultrasound of the abdomen; however, the pelvis was not done; therefore, ultrasound of the pelvis is reordered, so tomorrow, we are hoping for a thoracentesis as well as pelvic ultrasound to help find the source of the hepatic metastatic lesions. We will continue to follow the patient closely. Eddie Brannon MD BILL
--- NOTE | 2017-08-01 17:42 | US ---
HISTORY: mass in cul-de-sac COMPARISON: 07/28/2017 CT abdomen and pelvis. TECHNIQUE: Transabdominal, transvaginal. Real -time technique with 2D, duplex and color Doppler. All FINDINGS: UTERUS: Measures 3.1 x 4.9 x 5.1 cm. Normal in size and appearance. No fibroid or other mass lesion seen. ENDOMETRIUM: Measures 8.9 mm in diameter. Heterogeneous endometrium with small cystic areas. This may represent but are not conclusive for cystic endometrial hyperplasia. CERVIX: No cervical abnormality identified. RIGHT OVARY: Not visualized LEFT OVARY: Not visualized FREE FLUID: No significant free fluid noted. OTHER FINDINGS: Solid mass in the cul-de-sac corresponding to findings on recent CT scan measures 5.4 x 5.6 x 6.1 cm. The overall appearance suggests tumor perhaps drop metastasis. IMPRESSION: Pelvic mass residing in the cul-de-sac consistent with solid tumor. Mild thickening of the endometrial echo complex. Endometrial thickness should not exceed 5 mm in a postmenopausal individual.
--- NOTE | 2017-08-01 17:43 | US ---
PROCEDURE: Pelvic ultrasound HISTORY: posterior pelvic mass, ?ovary COMPARISON: 07/28/2017 CT scan abdomen and pelvis. TECHNIQUE: Transabdominal, transvaginal. Real -time technique with 2D, duplex and color Doppler. FINDINGS: Findings described in greater detail in the transabdominal component of this study and summarized below in the Impression: IMPRESSION: Pelvic mass residing in the cul-de-sac consistent with solid tumor. Mild thickening of the endometrial echo complex. Endometrial thickness should not exceed 5 mm in a postmenopausal individual.
[2017-08-01] MEDS: Sodium Chloride 0.45% 1,000 ML IV SCH (19:39)
--- NOTE | 2017-08-02 00:48 | PN ---
DATE: 08/01/2017 SUBJECTIVE: The patient was seen this Monday morning in room 364, bed 1 with her neighbor, Ms. Nino at the bedside. She is awake, alert, clear, appropriate, somewhat sad about the findings of her workup so far. The large pleural effusion is scheduled to be tapped later today. Patient is also aware of the liver mets and the pelvic mass. Oncology, Pulmonary and GI consults appreciated. Multiple tumor markers were positive and therefore not terribly revealing of multiple possible diagnoses. We are awaiting for tissue diagnosis and direction. After thoracentesis, I will suspect patient's symptoms would improve quite a bit and we will follow. Olvin Brannon MD MTDD
--- NOTE | 2017-08-02 04:59 | CON ---
DATE: 08/01/2017 TIME: 07:17 p.m. CHIEF COMPLAINT AND HISTORY OF PRESENT ILLNESS: This is a 76-year-old female with limited past medical history who has been experiencing shortness of breath and weakness over the past 3 weeks. She was admitted over the weekend. CT imaging demonstrated a large partially-loculated left pleural effusion and possible hilar adenopathy. The left lung is collapsed. There are several low attenuation masses in the liver consistent with metastatic disease. There is a solid mass in the cul-de-sac, which could represent adnexal tumor or drop metastasis. PAST MEDICAL HISTORY: Significant for rheumatoid arthritis, hypertension, hyperlipidemia and anxiety. IMPRESSION: I reviewed the situation with the patient and her niece. We are planning on a left thoracentesis. The fluid will be sent for cytology. She may require chest tube placement with suction in order to re-expand the lung. Also a CT guided liver biopsy will be performed. An ultrasound has been ordered for the pelvic mass, which may be solid on the CT scan. The situation was reviewed with the patient and she agrees to proceed with the left thoracentesis and CT liver biopsy. Francis Holcomb MD MTDLisset
[2017-08-02] MEDS: Pantoprazole 40 mg EC Tab PO SCH (09:19)
--- NOTE | 2017-08-02 11:22 | CP.PCM.PN ---
<Yesy Mooney - Last Filed: 08/02/17 18:09> Subjective - Date & Time of Evaluation Date of Evaluation: 08/02/17 Time of Evaluation: 10:00 - Subjective Subjective: PGY-[address] Crocker's service Patient was seen and examined at bedside. No acute distress. Patient state that she is feeling anxious about procedure. Patient scheduled for thoracentesis and biopsy of liver mass today. Patient denies shortness of breath or chest pain. She denies abd pain, n/v. no reports of overt GI bleed. chart review. Objective - Vital Signs/Intake and Output Vital Signs (last 24 hours): Temp Pulse Resp BP Pulse Ox 98.3 F 98 H 20 147/91 H 93 L 08/02/17 06:00 08/02/17 10:00 08/02/17 06:00 08/02/17 09:19 08/02/17 06:00 Intake and Output: 08/02/17 08/02/17 06:59 18:59 Intake Total 300 240 Balance 300 240 - Medications Medications: Current Medications Alprazolam (Xanax) 0.5 mg PO Q6 PRN; Protocol PRN Reason: Anxiety Last Admin: 08/02/17 10:02 Dose: 0.5 mg Atorvastatin Calcium (Lipitor) 10 mg PO DIN [facility] Last Admin: 08/01/17 19:39 Dose: 10 mg Folic Acid (Folic Acid) 1 mg PO TID [facility] Last Admin: 08/02/17 09:19 Dose: 1 mg Sodium Chloride (Sodium Chloride 0.45%) 1,000 mls @ 80 mls/hr IV .[id number] [facility] Stop: 08/03/17 08:00 Last Admin: 08/01/17 19:39 Dose: 80 mls/hr Metoprolol Tartrate (Lopressor) 25 mg PO DAILY [facility] Last Admin: 08/02/17 09:19 Dose: 25 mg Methotrexate Sodium (2.5mg (Homemed)) 17.5 mg PO LAURY [facility] Pantoprazole Sodium (Protonix Ec Tab) 40 mg PO ACB [facility] Last Admin: 08/02/17 09:19 Dose: 40 mg Sertraline HCl (Zoloft) 50 mg PO DAILY [facility] Last Admin: 08/02/17 09:19 Dose: 50 mg Tramadol HCl (Ultram) 50 mg PO Q6 PRN PRN Reason: Pain, Mild (1-3) Last Admin: 08/02/17 01:32 Dose: 50 mg - Labs Labs: 07/30/17 07:30 07/30/17 07:30 PT 13.9 SECONDS (9.4-12.5) H 07/28/17 14:30 INR 1.21 (0.93-1.08) H 07/28/17 14:30 APTT 36.6 Seconds (25.1-36.5) H 07/28/17 14:30 - Constitutional Appears: Well, No Acute Distress - Head Exam Head Exam: ATRAUMATIC, NORMAL INSPECTION, NORMOCEPHALIC - Eye Exam Eye Exam: EOMI, Normal appearance - ENT Exam ENT Exam: Mucous Membranes Moist - Respiratory Exam Respiratory Exam: Clear to Ausculation Bilateral, NORMAL BREATHING PATTERN. absent: Accessory Muscle Use, Decreased Breath Sounds, Rales, Rhonchi, Wheezes, Respiratory Distress, Stridor - Cardiovascular Exam Cardiovascular Exam: REGULAR RHYTHM, +S1, +S2. absent: Bradycardia, Tachycardia , Murmur - GI/Abdominal Exam GI & Abdominal Exam: Soft, Normal Bowel Sounds. absent: Distended, Firm, Guarding, Tenderness - Extremities Exam Extremities Exam: Normal Inspection. absent: Pedal Edema, Tenderness - Neurological Exam Neurological Exam: Alert, Awake, Oriented x3 - Skin Skin Exam: Dry, Intact, Normal Color, Warm Assessment and Plan - Assessment and Plan (Free Text) Assessment: Large hiatal hernia, paraesophageal type Hepatic lesion, with cul-de-sac lesion Large left-sided pool effusion Near-syncope/weakness Rheumatoid arthritis on methotrexate Plan: Continue PPI Diet as tolerated transvaginal sonogram on 08/01/17 showed a large pelvic mass residing in cul-de- sac consistent with solid tumor Plan for thoracentesis today Consider EGD tomorrow tumor markers are elevated, CA 125 214, CA 199 114, ca 15-3 46.1 case reviewed and discussed with Dr. Crocker <Nkechi Crocker V - Last Filed: 08/02/17 23:20> Objective - Vital Signs/Intake and Output Vital Signs (last 24 hours): Temp Pulse Resp BP Pulse Ox 98.3 F 87 20 117/72 99 08/02/17 17:28 08/02/17 17:28 08/02/17 17:28 08/02/17 17:28 08/02/17 17:28 Intake and Output: 08/02/17 08/03/17 18:59 06:59 Intake Total 1170 Balance 1170 - Medications Medications: Current Medications Acetaminophen (Tylenol 325mg Tab) 650 mg PO Q4 PRN PRN Reason: Pain, Mild (1-3) Alprazolam (Xanax) 0.5 mg PO Q6 PRN; Protocol PRN Reason: Anxiety Last Admin: 08/02/17 21:43 Dose: 0.5 mg Atorvastatin Calcium (Lipitor) 10 mg PO DIN [facility] Last Admin: 08/02/17 19:01 Dose: 10 mg Folic Acid (Folic Acid) 1 mg PO TID [facility] Last Admin: 08/02/17 19:01 Dose: 1 mg Sodium Chloride (Sodium Chloride 0.45%) 1,000 mls @ 80 mls/hr IV .[id number] [facility] Stop: 08/03/17 08:00 Last Admin: 08/02/17 21:19 Dose: Not Given Metoprolol Tartrate (Lopressor) 25 mg PO DAILY [facility] Last Admin: 08/02/17 09:19 Dose: 25 mg Methotrexate Sodium (2.5mg (Homemed)) 17.5 mg PO LAURY [facility] Ondansetron HCl (Zofran Inj) 4 mg IVP Q6H PRN PRN Reason: Nausea/Vomiting Oxycodone/Acetaminophen (Percocet 5/325 Mg Tab) 1 tab PO Q4H PRN PRN Reason: Pain, moderate (4-7) Stop: 08/05/17 16:48 Pantoprazole Sodium (Protonix Ec Tab) 40 mg PO ACB [facility] Last Admin: 08/02/17 09:19 Dose: 40 mg Sertraline HCl (Zoloft) 50 mg PO DAILY [facility] Last Admin: 08/02/17 09:19 Dose: 50 mg Tramadol HCl (Ultram) 50 mg PO Q6 PRN PRN Reason: Pain, Mild (1-3) Last Admin: 08/02/17 01:32 Dose: 50 mg - Labs Labs: 08/02/17 11:30 08/02/17 11:30 PT 13.9 SECONDS (9.4-12.5) H 07/28/17 14:30 INR 1.21 (0.93-1.08) H 07/28/17 14:30 APTT 36.6 Seconds (25.1-36.5) H 07/28/17 14:30 Attending/Attestation - Attestation I have personally seen and examined this patient.: Yes I have fully participated in the care of the patient.: Yes I have reviewed all pertinent clinical information, including history, physical exam and plan: Yes Notes (Text): This is an addendum to GI progress report dictated by Medical ResidentThe patient was seen and examined earlier. Medical records, lab studies, imagings were reviewed. Last 24 hours events reviewed. Agreed with the above treatment plan as outlined in Residents notes the with the addition of the following 08/02/17 23:19
[2017-08-02 11:36] LABS: HEMOGLOBIN 12.3 g/dL (12.0-16.0); MEAN CELL VOLUME 92.2 fl (80.0-105.0); MEAN CORPUSCULAR HEMOGLOBIN 29.1 pg (25.0-35.0); MEAN CORPUSCULAR HGB CONC 31.5 g/dl (31.0-37.0); MEAN PLATELET VOLUME 9.6 fl (7.0-11.0); RBC 4.23 10^6/uL (3.5-6.1); RED CELL DISTRIBUTION WIDTH 17.8 % (11.5-14.5)
[2017-08-02 11:46] LABS: ALB/GLOB RATIO 0.9 (1.1-1.8); ALBUMIN 3.2 g/dL (3.0-4.8); ALT/SGPT 28 U/L (7-56); AST/SGOT 61 U/L (14-36); BLOOD UREA NITROGEN 26 mg/dL (7-21); CALCIUM 9.4 mg/dL (8.4-10.5); GFR AFRICAN-AMERICAN > 60; GFR NON-AFRICAN AMERICAN > 60
--- NOTE | 2017-08-02 12:05 | PN ---
DATE: 08/02/2017 PULMONARY PROGRESS NOTE SUBJECTIVE: The patient was seen and examined at bedside. She is not in respiratory distress. PHYSICAL EXAMINATION: VITAL SIGNS: Temperature is 98, respirations 20, blood pressure 130/70, pulse is 84, oxygen saturation is 93 on room air. HEENT: Examination of head, ear, nose and throat, normocephalic and atraumatic. CHEST: Diminished breath sounds at the left lung, lower two-thirds of left lung. CARDIOVASCULAR: S1 and S2. No S3. Regular. GASTROINTESTINAL: Soft, nontender. No organomegaly. EXTREMITIES: No pedal edema. SKIN: Clear with no skin rashes. No cyanosis. NEUROLOGIC: No focal deficits. ASSESSMENT: 1. Large left-sided pleural effusion and pleural masses. 2. Pelvic mass. 3. Suspect liver metastasis. 4. Positive tumor markers. PLAN: The patient will undergo ultrasound of fluoroscopic-guided catheter placement and pleural biopsy by Dr. Francis Holcomb. We will await cytology and pathology after evacuation of pleural fluids. Further plans per attending and Oncology. Dilip Vaughan MD
[2017-08-02] MEDS ORDERED: Midazolam 2 MG/2 ML VIAL ONE (15:35)
[2017-08-02] MEDS ORDERED: Lidocaine 1% Inj (20ml) ONE (15:36)
--- NOTE | 2017-08-02 15:40 | PN ---
DATE: 08/02/2017 DAILY PROGRESS NOTE SUBJECTIVE: The patient is an 76-year-old female who was admitted complaining of generalized weakness. She was found to have metastatic disease with multiple liver metastases. She is known to have a history of rheumatoid arthritis, hypertension, anxiety and depression. CAT scan revealed thickening of the stomach wall. There is a mass in the cul-de-sac. Followup transvaginal ultrasound shows this to be a solid mass, 5.4 x 5.6 x 6.1 cm. Radiology suggesting it may be a drop metastasis. She also had endothelial thickening of 8.9 mm, maximum normal is 5 mm. There is a large left-sided pleural effusion. The case was discussed with Dr. Francis Holcomb; with Dr. Crocker; jewelsmith, Dr. Ochoa and Dr. Andrews. Today, the patient is to undergo thoracentesis and possibly, a biopsy of one of the liver metastasis. Tumor markers were drawn earlier and they showed there were all elevated, CA 15-3, CA 19-9, CA-125. Hopefully, we will get enough tissue sample from the thoracentesis fluid and/or the liver biopsy to have a diagnosis as to the primary tumor source. When seen today, the patient is despondent as to her diagnosis. She is concerned about the pain to be involved with the thoracentesis and liver biopsy later today. Physical exam is essentially unchanged. Her vital signs are stable. We are continuing to follow the patient closely and we will follow up with the pathology reports after today's procedures. Eddie Brannon MD
--- NOTE | 2017-08-02 17:24 | US ---
PROCEDURE: Ultrasound guided left thoracentesis. CLINICAL HISTORY: Large complex left pleural effusion. Evaluate for malignant disease. Shortness of breath PHYSICIAN(S): Francis Holcomb MD. TECHNIQUE: The relative risks and indications of the procedure were explained to the patient and consent obtained. The patient was placed in a sitting position on the stretcher and sonography of the right chest performed. This revealed a moderate to large complex septated leftpleural effusion. A left posterolateral intercostal approach was selected and the area prepped and draped usual sterile fashion. 1% Xylocaine was used to anesthetize the skin and soft tissues. A 7 Romanian thoracentesis catheter was trocared into the left pleural cavity and 1300 ccof bloody fluid aspirated. A cytology specimen was sent. IMPRESSION: 1. Ultrasound guided left thoracentesis. 1300 cc of bloody fluid were aspirated. A cytology specimen was sent.
--- NOTE | 2017-08-02 17:25 | CT ---
PROCEDURE: CT guided liver biopsy. HISTORY: Multiple liver lesions consistent with metastatic disease. PHYSICIAN(S): Francis Holcomb MD. TECHNIQUE: The relative risks and indications of the procedure were explained to the patient and consent obtained. The patient was placed supine on the CT scanner and preliminary images through the liver obtained. Conscious sedation and monitoring were provided throughout the procedure by a nurse. There are multiple large low-attenuation lesions in both lobes of liver.. A right lateral oblique approach was selected and the area prepped and draped in the usual sterile fashion. 1% Xylocaine was used to anesthetize the skin and soft tissues. A 17-gauge guiding needle was advanced into the anterior segment of the right lobe of the liver.. Its position was confirmed with CT. Using coaxial technique, multiple core biopsies were obtained. The postprocedure images show no evidence of significant hemorrhage. IMPRESSION: 1. CT-guided liver biopsy as described above.
[2017-08-02] MEDS: Sodium Chloride 0.45% 1,000 ML IV SCH (21:19)
[2017-08-03 06:30] LABS: HEMOGLOBIN 12.1 g/dL (12.0-16.0); MEAN CELL VOLUME 91.1 fl (80.0-105.0); MEAN CORPUSCULAR HEMOGLOBIN 29.2 pg (25.0-35.0); MEAN PLATELET VOLUME 9.3 fl (7.0-11.0); RBC 4.15 10^6/uL (3.5-6.1); RED CELL DISTRIBUTION WIDTH 17.6 % (11.5-14.5); WHITE BLOOD COUNT 15.8 10^3/ul (4.5-11.0)
--- NOTE | 2017-08-03 09:55 | RAD ---
HISTORY: lt thora COMPARISON: 07/28/2017 FINDINGS: LUNGS: Left lower lobe infiltrate PLEURA: There is a decrease in the left effusion. There is no pneumothorax CARDIOVASCULAR: Normal. OSSEOUS STRUCTURES: No significant abnormalities. VISUALIZED UPPER ABDOMEN: Normal. OTHER FINDINGS: None. IMPRESSION: Left lower lobe infiltrate. Decrease in left effusion. No evidence of pneumothorax following thoracentesis
[2017-08-03] MEDS ORDERED: METHOTREXATE SODIUM 2.5 MG PO SCH (10:00)
[2017-08-03] MEDS: Pantoprazole 40 mg EC Tab PO SCH (10:04)
[2017-08-03] MEDS: Oxycodone/Acetaminophen 5/325 mg Tab PO PRN ×4 (10:07→22:15)
--- NOTE | 2017-08-03 13:57 | PN ---
DATE: 08/03/2017 PULMONARY PROGRESS NOTE SUBJECTIVE: The patient was seen and examined at bedside. PHYSICAL EXAMINATION: VITAL SIGNS: Her vital signs as follows; temperature 97.6, pulse 100, respirations 20, pulse oximetry is 99 on nasal cannula, blood pressure 119/66. HEAD: Normocephalic and atraumatic. NECK: Supple with no jugular vein distentions. CARDIOVASCULAR: Symmetrical S1, S2. No S3. Regular. PULMONARY: Few coarse rhonchi bilaterally. No wheezing. GASTROINTESTINAL: Abdomen is soft, nontender, no organomegaly. EXTREMITIES: No pedal edema. SKIN: Clear with no cyanosis, no skin rashes. NEUROLOGIC: No focal deficits. Her WBC is 15.8, hemoglobin of 12.1. This is today's blood work. Attempted to obtain the surgical reports on this patient. She was supposed to have a thoracentesis under ultrasound, which was performed by Dr. Francis Holcomb. Specimens were sent for cytology and microbiology. Approximately 1300 mL of serosanguineous fluid was removed without complications. ASSESSMENT: 1. Large left pleural effusion, bloody. 2. Status post ultrasound-guided thoracentesis. 3. High suspicion for malignancy, pelvis, liver, lung. PLAN: The patient's condition is stable. Her respirations are comfortable and improved after thoracentesis. We will await results of cytology and pathology. Her tumor markers are positive. Further fluid management will depend on the rate of reaccumulation. Dilip Vaughan MD [email or web address]
--- NOTE | 2017-08-03 15:50 | CP.PCM.PN ---
<John Crockerl V - Last Filed: 08/03/17 22:21> Objective - Vital Signs/Intake and Output Vital Signs (last 24 hours): Temp Pulse Resp BP Pulse Ox 98.2 F 78 20 112/66 95 08/03/17 16:41 08/03/17 18:00 08/03/17 16:41 08/03/17 16:41 08/03/17 16:41 Intake and Output: 08/03/17 08/04/17 18:59 06:59 Intake Total 480 Balance 480 - Medications Medications: Current Medications Acetaminophen (Tylenol 325mg Tab) 650 mg PO Q4 PRN PRN Reason: Pain, Mild (1-3) Alprazolam (Xanax) 0.5 mg PO Q6 PRN; Protocol PRN Reason: Anxiety Last Admin: 08/02/17 21:43 Dose: 0.5 mg Atorvastatin Calcium (Lipitor) 10 mg PO DIN [facility] Last Admin: 08/03/17 17:19 Dose: 10 mg Folic Acid (Folic Acid) 1 mg PO TID [facility] Last Admin: 08/03/17 17:19 Dose: 1 mg Metoprolol Tartrate (Lopressor) 25 mg PO DAILY [facility] Last Admin: 08/03/17 10:03 Dose: 25 mg Methotrexate Sodium (2.5mg (Homemed)) 17.5 mg PO LAURY [facility] Last Admin: 08/03/17 10:03 Dose: 17.5 mg Ondansetron HCl (Zofran Inj) 4 mg IVP Q6H PRN PRN Reason: Nausea/Vomiting Oxycodone/Acetaminophen (Percocet 5/325 Mg Tab) 1 tab PO Q4H PRN PRN Reason: Pain, moderate (4-7) Stop: 08/05/17 16:48 Last Admin: 08/03/17 22:15 Dose: 1 tab Pantoprazole Sodium (Protonix Ec Tab) 40 mg PO ACB [facility] Last Admin: 08/03/17 10:04 Dose: 40 mg Sertraline HCl (Zoloft) 50 mg PO DAILY [facility] Last Admin: 08/03/17 10:04 Dose: 50 mg Tramadol HCl (Ultram) 50 mg PO Q6 PRN PRN Reason: Pain, Mild (1-3) Last Admin: 08/02/17 01:32 Dose: 50 mg - Labs Labs: 08/03/17 05:30 08/02/17 11:30 PT 13.9 SECONDS (9.4-12.5) H 07/28/17 14:30 INR 1.21 (0.93-1.08) H 07/28/17 14:30 APTT 36.6 Seconds (25.1-36.5) H 07/28/17 14:30 Attending/Attestation - Attestation I have personally seen and examined this patient.: Yes I have fully participated in the care of the patient.: Yes I have reviewed all pertinent clinical information, including history, physical exam and plan: Yes Notes (Text): This is an addendum to GI progress report dictated by Korina Gibson APN.The patient was seen and examined earlier. Medical records, lab studies, imagings were reviewed. Last 24 hours events reviewed. Agreed with the above treatment plan as outlined in Korina Gibson APN's notes the with the addition of the following 08/03/17 22:21 <Korina Gibson - Last Filed: 08/04/17 08:04> Subjective - Date & Time of Evaluation Date of Evaluation: 08/03/17 Time of Evaluation: 10:25 - Subjective Subjective: Seen and examined at the bedside earlier today, chart review. Patient had BM, no reports of overt GI bleed. Status post thoracentesis, 1300 cc of bloody fluid noted. No reports of acute overnight events. Patient denies nausea, vomiting, or abdominal pain. Objective - Vital Signs/Intake and Output Vital Signs (last 24 hours): Temp Pulse Resp BP Pulse Ox 97.6 F 100 H 20 120/66 100 08/03/17 06:00 08/03/17 10:03 08/03/17 06:00 08/03/17 10:03 08/03/17 06:00 - Medications Medications: Current Medications Acetaminophen (Tylenol 325mg Tab) 650 mg PO Q4 PRN PRN Reason: Pain, Mild (1-3) Alprazolam (Xanax) 0.5 mg PO Q6 PRN; Protocol PRN Reason: Anxiety Last Admin: 08/02/17 21:43 Dose: 0.5 mg Atorvastatin Calcium (Lipitor) 10 mg PO DIN [facility] Last Admin: 08/02/17 19:01 Dose: 10 mg Folic Acid (Folic Acid) 1 mg PO TID [facility] Last Admin: 08/03/17 10:02 Dose: 1 mg Metoprolol Tartrate (Lopressor) 25 mg PO DAILY [facility] Last Admin: 08/03/17 10:03 Dose: 25 mg Methotrexate Sodium (2.5mg (Homemed)) 17.5 mg PO LAURY [facility] Last Admin: 08/03/17 10:03 Dose: 17.5 mg Ondansetron HCl (Zofran Inj) 4 mg IVP Q6H PRN PRN Reason: Nausea/Vomiting Oxycodone/Acetaminophen (Percocet 5/325 Mg Tab) 1 tab PO Q4H PRN PRN Reason: Pain, moderate (4-7) Stop: 08/05/17 16:48 Last Admin: 08/03/17 10:07 Dose: 1 tab Pantoprazole Sodium (Protonix Ec Tab) 40 mg PO ACB [facility] Last Admin: 08/03/17 10:04 Dose: 40 mg Sertraline HCl (Zoloft) 50 mg PO DAILY [facility] Last Admin: 08/03/17 10:04 Dose: 50 mg Tramadol HCl (Ultram) 50 mg PO Q6 PRN PRN Reason: Pain, Mild (1-3) Last Admin: 08/02/17 01:32 Dose: 50 mg - Labs Labs: 08/03/17 05:30 08/02/17 11:30 PT 13.9 SECONDS (9.4-12.5) H 07/28/17 14:30 INR 1.21 (0.93-1.08) H 07/28/17 14:30 APTT 36.6 Seconds (25.1-36.5) H 07/28/17 14:30 - Constitutional Appears: No Acute Distress - Eye Exam Eye Exam: Normal appearance. absent: Scleral icterus - ENT Exam ENT Exam: Mucous Membranes Moist - Respiratory Exam Respiratory Exam: NORMAL BREATHING PATTERN. absent: Respiratory Distress - Cardiovascular Exam Cardiovascular Exam: +S1, +S2 - GI/Abdominal Exam GI & Abdominal Exam: Soft, Normal Bowel Sounds. absent: Guarding, Tenderness, Rebound - Extremities Exam Extremities Exam: absent: Calf Tenderness, Pedal Edema - Neurological Exam Neurological Exam: Alert, Awake, Oriented x3 Assessment and Plan - Assessment and Plan (Free Text) Assessment: Assessment: Large hiatal hernia, paraesophageal type Hepatic lesion, with cul-de-sac lesion,transvaginal sonogram on 08/01/17 showed a large pelvic mass residing in cul-de- sac consistent with solid tumor, s/p liver BX Large left-sided pool effusion Near-syncope/weakness Rheumatoid arthritis on methotrexate Elevated tumor markers:tumor markers are elevated, CA 125 214, CA 199 114, ca 15 -3 46.1 Plan: Continue PPI Diet as tolerated tentatively plan for endoscopy tomorrow, clear liquid diet for breakfast Check CEA level FU liver BX Seen and discussed w/ Dr. Crocker
--- NOTE | 2017-08-03 19:24 | CP.PCM.CON ---
History of Present Illness - History of Present Illness History of Present Illness: Heme Onc Consult Note for Dr Garner Consult for: Metastatic Disease HPI: Patient is a 76 F with a PMHx of RA on MTX, HTN, HLD, dysphagia, and hemorrhoids presented to [facility] [place] [facility] ED initially for a near syncopal episode and weakness that had progressively worsened days prior to admission. Upon further assessment, patient was found to have large left sided pleural effusion, and subsequent CT demonstrated gastric wall thickening, hiatial hernia, left sided pleural effusion with compressive atelectasis and hepatic lesions, as well as a mass in the cul-de-sac. Patient was seen and examined at bedside. Patient is s/ p thoracentesis with 1.3L of sanguinous fluid. Pt offers no complaints at this time and is tolerating diet and moving bowels and bladder regularly. Patient denied fever, chills, lightehadedness, chest pains, abdominal pains, nausea, vomiting, diarrhea, constipation, or dysuria. PMHx: RA on MTX, HTN, HLD, dysphagia, and hemorrhoids PSHx: Appendectomy, cholecystectomy SHx: +former tobacco user, - EtOH, denied illicits FamHX: Denied Meds: MAR reviewed Allergies: NKDA Review of Systems - Review of Systems Review of Systems: as per HPI otherwise negative Past Patient History - Infectious Disease Hx of Infectious Diseases: None - Past Social History Smoking Status: Light Smoker < 10 Cigarettes Daily - CARDIAC Hx Cardiac Disorders: Yes Hx Hypertension: Yes - PULMONARY Hx Respiratory Disorders: No - NEUROLOGICAL Hx Neurological Disorder: Yes Hx Dizziness: Yes - HEENT Hx HEENT Problems: No - RENAL Hx Chronic Kidney Disease: No - ENDOCRINE/METABOLIC Hx Endocrine Disorders: No - HEMATOLOGICAL/ONCOLOGICAL Hx Blood Disorders: No - INTEGUMENTARY Hx Dermatological Problems: No - MUSCULOSKELETAL/RHEUMATOLOGICAL Hx Arthritis: Yes - GASTROINTESTINAL Hx Gastrointestinal Disorders: Yes Other/Comment: constipation - GENITOURINARY/GYNECOLOGICAL Hx Genitourinary Disorders: Yes Other/Comment: Right fallopian tube removal - PSYCHIATRIC Hx Psychophysiologic Disorder: Yes Hx Anxiety: Yes Hx Depression: Yes Hx Substance Use: No - SURGICAL HISTORY Hx Surgeries: Yes Hx Appendectomy: Yes Hx Cholecystectomy: Yes Hx Joint Replacement: Yes (right hip) Other/Comment: 24 lbs dermoid cys. right fallopian tube removal - ANESTHESIA Hx Anesthesia: Yes Meds Allergies/Adverse Reactions: Allergies Allergy/AdvReac Type Severity Reaction Status Date / Time Unobtainable Allergy Verified 07/28/17 15:28 - Medications Medications: Current Medications Acetaminophen (Tylenol 325mg Tab) 650 mg PO Q4 PRN PRN Reason: Pain, Mild (1-3) Alprazolam (Xanax) 0.5 mg PO Q6 PRN; Protocol PRN Reason: Anxiety Last Admin: 08/02/17 21:43 Dose: 0.5 mg Atorvastatin Calcium (Lipitor) 10 mg PO DIN [facility] Last Admin: 08/03/17 17:19 Dose: 10 mg Folic Acid (Folic Acid) 1 mg PO TID [facility] Last Admin: 08/03/17 17:19 Dose: 1 mg Metoprolol Tartrate (Lopressor) 25 mg PO DAILY [facility] Last Admin: 08/03/17 10:03 Dose: 25 mg Methotrexate Sodium (2.5mg (Homemed)) 17.5 mg PO LAURY [facility] Last Admin: 08/03/17 10:03 Dose: 17.5 mg Ondansetron HCl (Zofran Inj) 4 mg IVP Q6H PRN PRN Reason: Nausea/Vomiting Oxycodone/Acetaminophen (Percocet 5/325 Mg Tab) 1 tab PO Q4H PRN PRN Reason: Pain, moderate (4-7) Stop: 08/05/17 16:48 Last Admin: 08/03/17 17:19 Dose: 1 tab Pantoprazole Sodium (Protonix Ec Tab) 40 mg PO ACB [facility] Last Admin: 08/03/17 10:04 Dose: 40 mg Sertraline HCl (Zoloft) 50 mg PO DAILY [facility] Last Admin: 08/03/17 10:04 Dose: 50 mg Tramadol HCl (Ultram) 50 mg PO Q6 PRN PRN Reason: Pain, Mild (1-3) Last Admin: 08/02/17 01:32 Dose: 50 mg Physical Exam - Constitutional Appears: No Acute Distress - Head Exam Head Exam: ATRAUMATIC, NORMAL INSPECTION, NORMOCEPHALIC - Eye Exam Eye Exam: EOMI, Normal appearance, PERRL Pupil Exam: NORMAL ACCOMODATION, PERRL - ENT Exam ENT Exam: Mucous Membranes Moist, Normal Exam - Neck Exam Neck exam: Positive for: Normal Inspection - Respiratory Exam Respiratory Exam: Decreased Breath Sounds, NORMAL BREATHING PATTERN - Cardiovascular Exam Cardiovascular Exam: REGULAR RHYTHM, +S1, +S2 - GI/Abdominal Exam GI & Abdominal Exam: Normal Bowel Sounds, Soft. absent: Tenderness - Extremities Exam Extremities exam: Positive for: normal inspection - Neurological Exam Neurological exam: Alert, CN II-XII Intact, Normal Gait, Oriented x3, Reflexes Normal - Psychiatric Exam Psychiatric exam: Normal Affect, Normal Mood - Skin Skin Exam: Dry, Intact, Normal Color, Warm Results - Vital Signs Recent Vital Signs: Last Vital Signs Temp 98.2 F 08/03/17 16:41 Pulse 78 08/03/17 18:00 Resp 20 08/03/17 16:41 BP 112/66 08/03/17 16:41 Pulse Ox 95 08/03/17 16:41 - Labs Result Diagrams: 08/03/17 05:30 08/02/17 11:30 Labs: Laboratory Results - last 24 hr 08/03/17 05:30 WBC 15.8 H RBC 4.15 Hgb 12.1 Hct 37.8 MCV 91.1 MCH 29.2 MCHC 32.0 RDW 17.6 H Plt Count 349 MPV 9.3 Assessment & Plan - Assessment and Plan (Free Text) Assessment: 76 F with a PMHx of RA on MTX, HTN, HLD, dysphagia, and hemorrhoids presented to [facility] ED initially for a near syncopal episode and weakness that had progressively worsened days prior to admission. Upon further assessment, patient was found to have large left sided pleural effusion, and subsequent CT demonstrated gastric wall thickening, hiatial hernia, left sided pleural effusion with compressive atelectasis and hepatic lesions, as well as a Transvaginal US demonstrated a solid mass in the cul-de-sac. Patient is s/p thoracentesis with 1.3L of sanguinous fluid by IR Dr. Holcomb. Elevated tumor markers:tumor markers are elevated, CA 125 214, CA 199 114, ca 15-3 46.1 fu CEA. Patient is for endoscopy tomorrow. Above evaluation suggests primary of gastric vs ovarian vs colorectal vs lung ca with metastasis. FU bx results. FU cytology.
--- NOTE | 2017-08-04 03:20 | PN ---
DATE: 08/03/2017 The patient was seen this in the morning in room 364, bed 1. She is resting comfortably in bed, in no pain. Thoracentesis was done yesterday and over a liter of bloody fluid was removed from the left chest. Liver biopsy was performed as well. Pathology is pending. I spoke with the patient at length regarding workup and the high probability that there is a malignant metastatic disease present. I asked if she had a preference of oncologist, Dr. Garner will be called to consult. Later in the day, I received call from case management. The patient has been accepted to the transitional care unit and may be ready for transfer for additional physical therapy and conditioning until pathology is available. GI may be planning EGD tomorrow. Olvin Brannon MD [email or web address]
[2017-08-04 06:34] LABS: HEMOGLOBIN 12.2 g/dL (12.0-16.0); MEAN CELL VOLUME 91.4 fl (80.0-105.0); MEAN CORPUSCULAR HEMOGLOBIN 29.2 pg (25.0-35.0); MEAN CORPUSCULAR HGB CONC 31.9 g/dl (31.0-37.0); MEAN PLATELET VOLUME 9.5 fl (7.0-11.0); RBC 4.18 10^6/uL (3.5-6.1); RED CELL DISTRIBUTION WIDTH 17.5 % (11.5-14.5); WHITE BLOOD COUNT 14.4 10^3/ul (4.5-11.0)
[2017-08-04 07:35] LABS: ALB/GLOB RATIO 0.9 (1.1-1.8); CALCIUM 9.3 mg/dL (8.4-10.5)
[2017-08-04] MEDS: Pantoprazole 40 mg EC Tab PO SCH (09:29)
[2017-08-04] MEDS ORDERED: Zinc Oxide Topical 40% Oint (Desitin) TOP PRN (10:42)
--- NOTE | 2017-08-04 14:18 | PN ---
DATE: 08/04/2017 PULMONARY PROGRESS NOTE SUBJECTIVE: The patient was seen and examined at bedside. She appears comfortable. She is not in distress and not in pain. PHYSICAL EXAMINATION: VITAL SIGNS: Her temperature is 98, pulse 95, respirations 18, pulse oximetry is 93 on room air, blood pressure is 101/50. HEENT: Examination of head, ears, nose and throat is within normal limits. CARDIOVASCULAR: S1, S2. No S3. Regular. PULMONARY: Diminished breath sounds at the left lower hemithorax. GASTROINTESTINAL: Soft, nontender. No organomegaly. EXTREMITIES: No edema. No cyanosis. SKIN: Clear. No skin rashes. NEUROLOGIC: Limited at the present time. LABORATORY DATA: Additional data reviewed. Her CBC is WBC is 14.4 and platelet count is 350,000. Electrolytes are normal. ASSESSMENT: 1. Hemorrhagic pleural effusion. 2. Pleural base masses. 3. Pelvic mass. 4. Hepatic lesions, highly suspicious for metastatic disease. PLAN: We will await cytology from pleural fluid as well as the results of the liver biopsy done by Dr. Holcomb. The patient is undergoing endoscopy today. Suspect ovarian versus GI tract with metastatic spread. Dilip Vaughan MD
--- NOTE | 2017-08-04 15:39 | CP.PCM.PN ---
Subjective - Date & Time of Evaluation Date of Evaluation: 08/04/17 Time of Evaluation: 09:00 - Subjective Subjective: Heme Onc Progress Note for Dr. Garner Patient was seen and examined at bedside. No acute complaints. Tolerated thoracentesis and liver bx, total 1.3L drained. No acute or adverse events as per nursing staff. Patient wished to take to PMD regarding being followed by Dr. Garner. Patient denied fever, chills, shortness of breath, chest pains, abdominal pains, nausea, vomiting, diarrhea, constipation or dysuria. Objective - Vital Signs/Intake and Output Vital Signs (last 24 hours): Temp Pulse Resp BP Pulse Ox 98.4 F 90 21 144/77 95 08/04/17 06:00 08/04/17 13:27 08/04/17 13:27 08/04/17 13:27 08/04/17 13:27 Intake and Output: 08/04/17 08/04/17 06:59 18:59 Intake Total 700 0 Output Total 300 Balance 700 -300 - Medications Medications: Current Medications Acetaminophen (Tylenol 325mg Tab) 650 mg PO Q4 PRN PRN Reason: Pain, Mild (1-3) Alprazolam (Xanax) 0.5 mg PO Q6 PRN; Protocol PRN Reason: Anxiety Last Admin: 08/04/17 02:15 Dose: 0.5 mg Atorvastatin Calcium (Lipitor) 10 mg PO DIN [facility] Last Admin: 08/03/17 17:19 Dose: 10 mg Folic Acid (Folic Acid) 1 mg PO TID [facility] Last Admin: 08/04/17 13:24 Dose: Not Given Metoprolol Tartrate (Lopressor) 25 mg PO DAILY [facility] Last Admin: 08/04/17 09:28 Dose: 25 mg Methotrexate Sodium (2.5mg (Homemed)) 17.5 mg PO LAURY [facility] Last Admin: 08/03/17 10:03 Dose: 17.5 mg Ondansetron HCl (Zofran Inj) 4 mg IVP Q6H PRN PRN Reason: Nausea/Vomiting Oxycodone/Acetaminophen (Percocet 5/325 Mg Tab) 1 tab PO Q4H PRN PRN Reason: Pain, moderate (4-7) Stop: 08/05/17 16:48 Last Admin: 08/03/17 22:15 Dose: 1 tab Pantoprazole Sodium (Protonix Ec Tab) 40 mg PO ACB [facility] Last Admin: 08/04/17 09:29 Dose: 40 mg Petrolatum (Desitin Maximum Strength Topical 40% Oint) 0 gm TOP Q4H PRN PRN Reason: Rash Sertraline HCl (Zoloft) 50 mg PO DAILY [facility] Last Admin: 08/04/17 09:29 Dose: 50 mg Tramadol HCl (Ultram) 50 mg PO Q6 PRN PRN Reason: Pain, Mild (1-3) Last Admin: 08/02/17 01:32 Dose: 50 mg - Labs Labs: 08/04/17 05:15 08/04/17 05:15 PT 13.9 SECONDS (9.4-12.5) H 07/28/17 14:30 INR 1.21 (0.93-1.08) H 07/28/17 14:30 APTT 36.6 Seconds (25.1-36.5) H 07/28/17 14:30 - Constitutional Appears: No Acute Distress - Head Exam Head Exam: ATRAUMATIC, NORMAL INSPECTION, NORMOCEPHALIC - Eye Exam Eye Exam: EOMI, Normal appearance, PERRL Pupil Exam: NORMAL ACCOMODATION, PERRL - ENT Exam ENT Exam: Mucous Membranes Dry - Respiratory Exam Respiratory Exam: Decreased Breath Sounds, Clear to Ausculation Bilateral, NORMAL BREATHING PATTERN - Cardiovascular Exam Cardiovascular Exam: REGULAR RHYTHM, +S1, +S2. absent: Murmur - GI/Abdominal Exam GI & Abdominal Exam: Soft, Normal Bowel Sounds. absent: Tenderness - Neurological Exam Neurological Exam: Alert, Awake, CN II-XII Intact, Oriented x3 - Psychiatric Exam Psychiatric exam: Anxious - Skin Skin Exam: Dry, Intact, Normal Color, Warm Assessment and Plan - Assessment and Plan (Free Text) Assessment: 76 F with a PMHx of RA on MTX, HTN, HLD, dysphagia, and hemorrhoids presented to [facility] ED initially for a near syncopal episode and weakness that had progressively worsened days prior to admission. Upon further assessment, patient was found to have large left sided pleural effusion, and subsequent CT demonstrated gastric wall thickening, hiatial hernia, left sided pleural effusion with compressive atelectasis and hepatic lesions, as well as a Transvaginal US demonstrated a solid mass in the cul-de-sac. Patient is s/p thoracentesis with 1.3L of sanguinous fluid by IR Dr. Holcomb. Elevated tumor markers:tumor markers are elevated, CA 125 214, CA 199 114, ca 15-3 46.1 fu CEA. Patient is for endoscopy tomorrow. Above evaluation suggests primary of gastric vs ovarian vs colorectal vs lung ca with metastasis. FU bx results. FU cytology. Pt to speak to PMD regarding outpt follow up with Dr. Garner.
[2017-08-04] MEDS ORDERED: Sodium Chloride 0.9% 1,000 ML IV SCH (16:45)
[2017-08-04] MEDS ORDERED: Propofol 10 mg/ml Inj (20 ML) ONE (16:47)
[2017-08-04] MEDS ORDERED: Simethicone 40 mg/0.6 ml Liquid (30 ml) ONE (17:11)
[2017-08-04] MEDS ORDERED: Etomidate 20 mg/10ml Inj IV ONE (17:24)
[2017-08-05 08:23] VITALS: BP 124/76; RESP 20; TEMP 97.5; O2SAT 94
[2017-08-05] MEDS: Pantoprazole 40 mg EC Tab PO SCH (09:08)
[2017-08-05] MEDS ORDERED: Magnesium Hydroxide Susp 30 ml UD PO PRN (10:17)
[2017-08-05 12:37] VITALS: PULSE 80
--- NOTE | 2017-08-06 07:20 | PN ---
DATE: 08/05/2017 SUBJECTIVE: This patient was seen and evaluated earlier today. The patient's daughter was at bedside. I had a detailed discussion with the patient and also the patient's daughter. PHYSICAL EXAMINATION: GENERAL: On examination, the patient is comfortable. The patient would like to have a regular food. No complaints of any abdominal pain. VITAL SIGNS: Afebrile. Pulse 85, blood pressure is 104/66, respirations 18, O2 saturation . HEENT: Atraumatic, anicteric. NECK: Supple. HEART: S1 and S2 heard. LUNGS: Bilateral air entry present, slightly reduced at the left base. ABDOMEN: Soft. EXTREMITIES: No edema. No cyanosis. LABORATORY DATA: No recent labs today. IMPRESSION: This is a 76-year-old patient admitted with a large pleural effusion and status post thoracentesis, had a hemorrhagic fluid. The patient had also multiple hepatic lesions, biopsies done, pathology is still pending, has underwent an upper gastrointestinal endoscopy yesterday, was found to have a 9 cm hiatal hernia which is paraesophageal and combined hiatal hernia. The patient had a 4 cm large lesion noticed in the cardia, extending from the cardia into the hernial sac. The patient also has large pelvic mass in the cul-de-sac. Impression is metastatic carcinoma, probable gastric cancer status post liver biopsy, status post thoracentesis. The patient also has a large pelvic mass which appeared to be compressing on the colon causing probable constipation. I had a detailed discussion with the patient, patient's daughter and also Dr. Brannon. The plan is to avoid colonoscopy. As the most likely cause of the constipation will be secondary to the extensive pressure from this pelvic mass. The reasonable thing is to await for these workup. The patient is planned to be transferred to the TCU for deconditioning. The diet has been advanced to soft diet. The patient is advised to chew well. Thank you very much for allowing us to participate in the care of the patient. Nkechi Crocker MD
[2017-08-06] MEDS ORDERED: POLYETHYLENE GLYCOL 3350 17 GM/Dose PACKET PO SCH (10:00)
--- NOTE | 2017-08-06 20:27 | PN ---
DATE: 08/04/2017 SUBJECTIVE: Patient was seen this Monday morning in room 364, bed 2. She is scheduled for endoscopy later today. She is awake, alert, clear, sharp, anxious, asking for more of her medications, Xanax and Zoloft. Xanax is available, but as p.r.n.; Zoloft is being given regularly scheduled. I spoke to the patient and explained the endoscopy procedure. We explained once again our findings to this point and I hope that later today she will be able to go to the transitional care unit where we can further engage in physical therapy, strengthening, conditioning and await the pathology reports of the liver biopsy, thoracentesis, and endoscopy. Olvin Brannon MD MTDD
--- NOTE | 2017-08-07 16:01 | DS ---
This is a 76-year-old woman known to Dr. Arun Brannon at our office. She presented to the emergency room with weakness and a bit of exertional dyspnea and some discomfort. Workup was done, found a large left-sided pleural effusion. CT scan of the abdomen showed metastatic lesions throughout the liver and a pelvic mass in the cul-de-sac, approximately 5 cm in size. Multiple consultations were requested including GI consult with Dr. Crocker and Interventional Radiology consult with Dr. Francis Holcomb. Liver biopsy was performed. Thoracentesis was done drawing off 1.3 liters of bloody fluid. Endoscopy was performed revealing a hiatal hernia and a large gastric lesion and biopsies were done. We spoke with the patient at length. She was informed of these findings. Dr. Crocker spoke with the patient's niece. The patient's prior medications for anxiety were adjusted in view of these ongoing workup and arrangements were made for her to transfer to the Transitional Care Unit where she can engage in some additional physical therapy while these reports are pending. I spoke with her about choice of oncologist. Dr. Garner was requested to consult as it will be for our options. suspicion is that this will be a gastric CA with metastasis to liver and malignant pleural effusion and drop down metastases, but those reports are pending. FINAL DISCHARGE DIAGNOSES: 1. Metastatic suspected malignancy. 2. Bloody pleural effusion. 3. Liver metastasis on CT scan. 4. Drop-down metastasis in the pelvic floor and cul-de-sac. 5. Gastric mass with biopsies taken at Endoscopy. 6. History of anxiety. 7. History of depression. Olvin Brannon MD
== END 2017-08-05 13:08 | DRG 375 ==
LOC: ED 14:08 → ERH 18:05 → 3RNO 20:51
PROVIDERS: ADMIT Internal Medicine; ATTEND Internal Medicine
PROC: BB4BZZZ Ultrasonography of Pleura (ICD-10-PCS; 2017-08-02)
PROC: 0FB13ZX Excision of Right Lobe Liver, Percutaneous Approach, Diagnostic (ICD-10-PCS; 2017-08-02)
PROC: BF25ZZZ Computerized Tomography (CT Scan) of Liver (ICD-10-PCS; 2017-08-02)
PROC: 0W9B3ZZ Drainage of Left Pleural Cavity, Percutaneous Approach (ICD-10-PCS; principal; 2017-08-02 13:00)
PROC: 0DB58ZX Excision of Esophagus, Via Natural or Artificial Opening Endoscopic, Diagnostic (ICD-10-PCS; 2017-08-04)
DX: C15.9 Malignant neoplasm of esophagus, unspecified (principal); J90 Pleural effusion, not elsewhere classified; C78.7 Secondary malignant neoplasm of liver and intrahepatic bile duct; J98.11 Atelectasis; C79.89 Secondary malignant neoplasm of other specified sites; E78.5 Hyperlipidemia, unspecified; E87.6 Hypokalemia; I10 Essential (primary) hypertension; I71.4 Abdominal aortic aneurysm, without rupture; K44.9 Diaphragmatic hernia without obstruction or gangrene; K59.00 Constipation, unspecified; R32 Unspecified urinary incontinence; M06.9 Rheumatoid arthritis, unspecified; Z79.899 Other long term (current) drug therapy; Z87.891 Personal history of nicotine dependence; Z90.49 Acquired absence of other specified parts of digestive tract; Z96.641 Presence of right artificial hip joint

== ENCOUNTER 2017-08-05 14:23 | Inpatient (IN) | payer OTHER, BC ==
[2017-08-05] MEDS ORDERED: Zinc Oxide Topical 40% Oint (Desitin) TOP PRN (14:50)
[2017-08-05] MEDS ORDERED: Magnesium Hydroxide Susp 30 ml UD PO PRN (14:51)
[2017-08-05 20:40] VITALS: BMI 22.8
[2017-08-05] MEDS ORDERED: Pneumococcal 23-Valent Vaccine IM ONE (20:41)
[2017-08-06] MEDS: Pantoprazole 40 mg EC Tab PO SCH (05:57)
--- NOTE | 2017-08-06 21:44 | PN ---
DATE: 08/06/2017 SUBJECTIVE: The patient was seen this Monday morning in transitional care unit, room 303. She has been oriented to the unit, and acquainted with the activities and expectations. Hopefully with physical therapy, she will become stronger and more active. This will also allow us time to gather the pathology results and present her with options for her findings. IMPRESSION AND PLAN: Case was discussed yesterday with Dr. Crocker after endoscopy was performed gastric lesion and hiatal hernia. However, given presumptive diagnoses is a gastric carcinoma with a malignant pleural effusion, liver metastasis and broke down metastasis into the pelvis. We will await path report. Oncology has been consulted. The patient is doing well with the current level of medications. She appreciates the regularly scheduled Xanax and remains on as she had been in the past. Olvin Brannon MD
[2017-08-06] MEDS: Oxycodone/Acetaminophen 5/325 mg Tab PO PRN (21:58)
--- NOTE | 2017-08-06 23:58 | PN ---
DATE: 08/06/2017 SUBJECTIVE: This patient was seen and evaluated earlier today. Patient is tolerating the diet. Patient did have good bowel movements. Feels better. PHYSICAL EXAMINATION: VITAL SIGNS: Temperature is afebrile, blood pressure 104/63 . HEENT: Atraumatic and anicteric. NECK: Supple. HEART: S1 and S2 heard. LUNGS: Bilateral air entry present. ABDOMEN: Soft. There is no mass palpable, no tenderness. IMPRESSION AND PLAN: This is a 76-year-old patient admitted with the large pleural effusion, status post thoracentesis, hemorrhagic fluid, had a multiple hepatic lesions, biopsies done, pathology is still pending. Had an upper gastrointestinal endoscopy done, which was found to have 4 cm gastric lesion suggestive of carcinoma. This patient clinically has advanced metastatic gastric carcinoma. Patient does have a pelvic mass, which is also compressing on colon causing constipation. Would recommend patient to have a soft diet in view of this large combined hernia and also stool softeners on periodic basis. Patient is extremely anxious and nervous and appears to be slightly depressed. Dr. Brannon's notes was reviewed. Patient is being started on medication and await for the path reports and then consider Oncological evaluation. I did have a detailed discussion with the patient's daughter yesterday. Thank you very much for allowing us to participate in the care of the patient. Nkechi Crocker MD
--- NOTE | 2017-08-07 03:57 | HP ---
DATE OF EXAM: 08/06/2017 HISTORY OF PRESENT ILLNESS: This is a 76-year-old woman recently admitted to [facility] for generalized weakness, found to have malignant pleural effusion of which 1.3 liters was drawn off, bloody malignant effusion of which 1.3 liters was drawn, liver metastasis that were biopsied and dropped down pelvic cul-de-sac metastasis and a gastric lesion and hiatal hernia, which was biopsied at endoscopy. Pathology reports were pending. So, now the patient comes to the Transitional Care Unit for physical therapy while the pathology reports are pending, so optimal plan treatment can be formulated. Past medical histories and list of medicines as well as more details can be better obtained prior hospital admission, history and physical, but she does have a history of anxiety and depression for which she takes alprazolam and sertraline. PHYSICAL EXAMINATION: GENERAL: The patient is awake and alert, answers appropriately and is clear. Mental status is at baseline. She is obviously sad and troubled by the diagnosis, but understands the plan here in the Transitional Care Unit. HEENT: Head and neck are unremarkable. NECK: Supple without masses. There is no JVD. Thyroid is not palpable. LUNGS: Have good aeration on the right, but dullness on the left, where the effusion is. ABDOMEN: Soft. EXTREMITIES: No significant edema. IMPRESSION: 1. Deconditioning. 2. Metastatic disease. 3. History of anxiety. 4. History of depression. PLAN: The patient will engage in activities with the Transitional Care Unit while here. We will also work towards formulating the optimal plan for her treatment when pathology specimens are finally available. Olvin Brannon MD
[2017-08-07] MEDS: Pantoprazole 40 mg EC Tab PO SCH (05:29)
[2017-08-07 11:47] LABS: HEMOGLOBIN 11.5 g/dL (12.0-16.0); MEAN CORPUSCULAR HEMOGLOBIN 29.4 pg (25.0-35.0); MEAN CORPUSCULAR HGB CONC 32.3 g/dl (31.0-37.0); MEAN PLATELET VOLUME 9.1 fl (7.0-11.0); RBC 3.91 10^6/uL (3.5-6.1); RED CELL DISTRIBUTION WIDTH 17.5 % (11.5-14.5); WHITE BLOOD COUNT 17.8 10^3/ul (4.5-11.0)
--- NOTE | 2017-08-07 11:59 | CP.PCM.PN ---
<Coco Fuentes - Last Filed: 08/07/17 11:54> Subjective - Date & Time of Evaluation Date of Evaluation: 08/07/17 Time of Evaluation: 07:00 - Subjective Subjective: GI Progress Note for Cecelia Mcelroy PGY2 Patient seen and examined at bedside. There were no acute overnight events as per nursing staff. I spoke with the nurse this am who reports the patient had a soft BM with some small streaks of bright red blood. Patient's appetite has improved. She denies nausea/vomiting/diarrhea, fever/chills, chest pain, shortness of breath, dysuria/hematuria, numbness or tingling. Objective - Vital Signs/Intake and Output Vital Signs (last 24 hours): Temp Pulse Resp BP Pulse Ox 98.1 F 95 H 16 111/76 98 08/05/17 20:30 08/07/17 07:58 08/05/17 20:30 08/07/17 07:58 08/05/17 15:05 - Medications Medications: Current Medications Acetaminophen (Tylenol 325mg Tab) 650 mg PO Q4 PRN PRN Reason: Pain, Mild (1-3) Alprazolam (Xanax) 0.5 mg PO Q6 PRN; Protocol PRN Reason: Anxiety Stop: 08/12/17 14:46 Alprazolam (Xanax) 0.5 mg PO BID [facility] PRN Reason: Protocol Last Admin: 08/07/17 09:33 Dose: 0.5 mg Atorvastatin Calcium (Lipitor) 10 mg PO DIN [facility] Last Admin: 08/06/17 17:51 Dose: 10 mg Folic Acid (Folic Acid) 1 mg PO DAILY [facility] Last Admin: 08/07/17 09:30 Dose: 1 mg Magnesium Hydroxide (Milk Of Magnesia) 30 ml PO DAILY PRN PRN Reason: Constipation Methotrexate (Methotrexate) 17.5 mg PO LAURY [facility] Metoprolol Tartrate (Lopressor) 25 mg PO 0800 [facility] Last Admin: 08/07/17 07:58 Dose: 25 mg Ondansetron HCl (Zofran Tab) 4 mg PO Q6 PRN PRN Reason: Nausea/Vomiting Oxycodone/Acetaminophen (Percocet 5/325 Mg Tab) 1 tab PO Q4H PRN PRN Reason: Pain, moderate (4-7) Stop: 08/08/17 14:46 Last Admin: 08/06/17 21:58 Dose: 1 tab Pantoprazole Sodium (Protonix Ec Tab) 40 mg PO 0630 [facility] Last Admin: 08/07/17 05:29 Dose: 40 mg Petrolatum (Desitin Maximum Strength Topical 40% Oint) 0 gm TOP Q4H PRN PRN Reason: Rash Last Admin: 08/06/17 09:27 Dose: 1 applic Sertraline HCl (Zoloft) 50 mg PO DAILY [facility] Last Admin: 08/07/17 09:30 Dose: 50 mg Tramadol HCl (Ultram) 50 mg PO Q6 PRN PRN Reason: Pain, Mild (1-3) Last Admin: 08/07/17 09:33 Dose: 50 mg - Labs Labs: 08/07/17 11:40 - Constitutional Appears: Chronically Ill - Head Exam Head Exam: ATRAUMATIC, NORMAL INSPECTION, NORMOCEPHALIC - Eye Exam Eye Exam: Normal appearance Pupil Exam: NORMAL ACCOMODATION - ENT Exam ENT Exam: Mucous Membranes Moist - Respiratory Exam Respiratory Exam: Clear to Ausculation Bilateral, NORMAL BREATHING PATTERN. absent: Rales, Rhonchi, Wheezes - Cardiovascular Exam Cardiovascular Exam: REGULAR RHYTHM, +S1, +S2. absent: Gallop, Rubs, Murmur - GI/Abdominal Exam GI & Abdominal Exam: Soft, Normal Bowel Sounds. absent: Rigid, Tenderness, Mass , Rebound - Extremities Exam Extremities Exam: Pedal Edema. absent: Calf Tenderness - Neurological Exam Neurological Exam: Alert, Awake, CN II-XII Intact - Psychiatric Exam Psychiatric exam: Anxious, Normal Affect, Normal Mood - Skin Skin Exam: Dry, Warm Assessment and Plan - Assessment and Plan (Free Text) Assessment: This is a 76yo female with past medical history of RA (on methotrexate), HTN, HLD who was admitted for large pleural effusion s/p thoracentesis, hepatic lesion s/p biopsy (pathology pending), gastric lesion (most likely carcinoma), pelvic mass, anxiety and constipation. Plan: Hgb is stable. WBC is elevated, but does not clinically have signs of infection. It may be reactive. Will re-check in AM. Will continue to monitor BM for blood. Will increase stool softeners and continue PPI. Will follow up pathology results as well as oncology recommendations. Case seen, discussed and reviewed with Dr. Crocker. Cecelia Fuentes PGY2 <Nkechi Crocker V - Last Filed: 08/07/17 23:25> Objective - Vital Signs/Intake and Output Vital Signs (last 24 hours): Temp Pulse Resp BP Pulse Ox 98.5 F 85 18 102/67 92 L 08/07/17 17:08 08/07/17 17:08 08/07/17 17:08 08/07/17 17:08 08/07/17 17:08 Intake and Output: 08/07/17 08/08/17 18:59 06:59 Intake Total 240 Balance 240 - Medications Medications: Current Medications Acetaminophen (Tylenol 325mg Tab) 650 mg PO Q4 PRN PRN Reason: Pain, Mild (1-3) Alprazolam (Xanax) 0.5 mg PO Q6 PRN; Protocol PRN Reason: Anxiety Stop: 08/12/17 14:46 Alprazolam (Xanax) 0.5 mg PO BID [facility] PRN Reason: Protocol Last Admin: 08/07/17 17:17 Dose: 0.5 mg Atorvastatin Calcium (Lipitor) 10 mg PO DIN [facility] Last Admin: 08/07/17 17:16 Dose: 10 mg Folic Acid (Folic Acid) 1 mg PO DAILY [facility] Last Admin: 08/07/17 09:30 Dose: 1 mg Magnesium Hydroxide (Milk Of Magnesia) 30 ml PO DAILY PRN PRN Reason: Constipation Methotrexate (Methotrexate) 17.5 mg PO LAURY [facility] Metoprolol Tartrate (Lopressor) 25 mg PO 0800 [facility] Last Admin: 08/07/17 07:58 Dose: 25 mg Ondansetron HCl (Zofran Tab) 4 mg PO Q6 PRN PRN Reason: Nausea/Vomiting Oxycodone/Acetaminophen (Percocet 5/325 Mg Tab) 1 tab PO Q4H PRN PRN Reason: Pain, moderate (4-7) Stop: 08/08/17 14:46 Last Admin: 08/06/17 21:58 Dose: 1 tab Pantoprazole Sodium (Protonix Ec Tab) 40 mg PO 0630 [facility] Last Admin: 08/07/17 05:29 Dose: 40 mg Petrolatum (Desitin Maximum Strength Topical 40% Oint) 0 gm TOP Q4H PRN PRN Reason: Rash Last Admin: 08/06/17 09:27 Dose: 1 applic Sertraline HCl (Zoloft) 50 mg PO DAILY [facility] Last Admin: 08/07/17 09:30 Dose: 50 mg Tramadol HCl (Ultram) 50 mg PO Q6 PRN PRN Reason: Pain, Mild (1-3) Last Admin: 08/07/17 09:33 Dose: 50 mg - Labs Labs: 08/07/17 11:40 Attending/Attestation - Attestation I have personally seen and examined this patient.: Yes I have fully participated in the care of the patient.: Yes I have reviewed all pertinent clinical information, including history, physical exam and plan: Yes Notes (Text): This is an addendum to GI progress report dictated by the Management Nurse Rn the.The patient was seen and examined earlier. Medical records, lab studies, imagings were reviewed. Last 24 hours events reviewed. Agreed with the above treatment plan as outlined in Management Nurse Rn 's notes the with the addition of the following complaints of constipation amount of blood MN on straining during bowel movement On examination abdomen softderness Tolerating for the biopsy Continue MiraLAX when prnthe basis for constipation follow-up hemoglobin 08/07/17 23:19 08/07/17 23:25
[2017-08-08] MEDS: Pantoprazole 40 mg EC Tab PO SCH (05:48)
--- NOTE | 2017-08-08 08:10 | CP.PCM.PN ---
Objective - Vital Signs/Intake and Output Vital Signs (last 24 hours): Temp Pulse Resp BP Pulse Ox 98.5 F 96 H 18 110/71 92 L 08/07/17 17:08 08/08/17 08:00 08/07/17 17:08 08/08/17 08:00 08/07/17 17:08 Intake and Output: 08/08/17 08/08/17 06:59 18:59 Intake Total 240 Balance 240 - Medications Medications: Current Medications Acetaminophen (Tylenol 325mg Tab) 650 mg PO Q4 PRN PRN Reason: Pain, Mild (1-3) Alprazolam (Xanax) 0.5 mg PO Q6 PRN; Protocol PRN Reason: Anxiety Stop: 08/12/17 14:46 Alprazolam (Xanax) 0.5 mg PO BID [facility] PRN Reason: Protocol Last Admin: 08/07/17 17:17 Dose: 0.5 mg Atorvastatin Calcium (Lipitor) 10 mg PO DIN [facility] Last Admin: 08/07/17 17:16 Dose: 10 mg Folic Acid (Folic Acid) 1 mg PO DAILY [facility] Last Admin: 08/07/17 09:30 Dose: 1 mg Magnesium Hydroxide (Milk Of Magnesia) 30 ml PO DAILY PRN PRN Reason: Constipation Methotrexate (Methotrexate) 17.5 mg PO LAURY [facility] Metoprolol Tartrate (Lopressor) 25 mg PO 0800 [facility] Last Admin: 08/08/17 08:00 Dose: 25 mg Ondansetron HCl (Zofran Tab) 4 mg PO Q6 PRN PRN Reason: Nausea/Vomiting Oxycodone/Acetaminophen (Percocet 5/325 Mg Tab) 1 tab PO Q4H PRN PRN Reason: Pain, moderate (4-7) Stop: 08/08/17 14:46 Last Admin: 08/06/17 21:58 Dose: 1 tab Pantoprazole Sodium (Protonix Ec Tab) 40 mg PO 0630 [facility] Last Admin: 08/08/17 05:48 Dose: Not Given Petrolatum (Desitin Maximum Strength Topical 40% Oint) 0 gm TOP Q4H PRN PRN Reason: Rash Last Admin: 08/06/17 09:27 Dose: 1 applic Sertraline HCl (Zoloft) 50 mg PO DAILY [facility] Last Admin: 08/07/17 09:30 Dose: 50 mg Tramadol HCl (Ultram) 50 mg PO Q6 PRN PRN Reason: Pain, Mild (1-3) Last Admin: 08/07/17 09:33 Dose: 50 mg - Labs Labs: 08/07/17 11:40
[2017-08-08 08:38] LABS: HEMOGLOBIN 11.6 g/dL (12.0-16.0); MEAN CELL VOLUME 91.5 fl (80.0-105.0); MEAN CORPUSCULAR HEMOGLOBIN 29.1 pg (25.0-35.0); MEAN CORPUSCULAR HGB CONC 31.9 g/dl (31.0-37.0); MEAN PLATELET VOLUME 9.2 fl (7.0-11.0); RBC 3.98 10^6/uL (3.5-6.1); RED CELL DISTRIBUTION WIDTH 17.6 % (11.5-14.5); WHITE BLOOD COUNT 14.9 10^3/ul (4.5-11.0)
--- NOTE | 2017-08-08 10:14 | PN ---
DATE: 08/07/2017 DAILY PROGRESS NOTE SUBJECTIVE: The patient is a 76-year-old female, who was admitted to [facility] with a diagnosis of weakness. She was found to have a metastatic disease of the liver. She also had a left-sided pleural effusion, mass in the cul-de-sac and thickening of the stomach on CAT scan. The patient underwent thoracentesis, also underwent biopsy of a metastatic lesion of the liver. She underwent endoscopy with biopsy of a gastric ulcer. At present, we are awaiting the pathology reports of these biopsies. The patient has been transferred to the Transitional Care Unit. When seen in the Transitional Care Unit this evening, she is awake, alert and oriented. Her nephew, Rl Stout is visiting her at bedside. The patient remains quite concerned and tearful at times concerning her diagnosis and prognosis. The patient is reassured that the plan is in place and we are awaiting pathology report. I urged the patient that until that time she needs to get a good night's rest and she needs to participate in physical therapy and ambulation. Her physical exam is unremarkable. We will continue to follow the patient closely and await for pathology reports. Eddie Brannon MD
--- NOTE | 2017-08-08 12:47 | CP.PCM.PN ---
Subjective - Date & Time of Evaluation Date of Evaluation: 08/08/17 Time of Evaluation: 10:50 - Subjective Subjective: S&E at bedside, chart reviewed, no acute overnight events as per nursing, patient denies melena or BRBPR. Reported that she was straining to have BM yesterday and tried to disimpact herself. No N/V or abdominal pain. Tolerating oral intake, no SOB or CP. Objective - Vital Signs/Intake and Output Vital Signs (last 24 hours): Temp Pulse Resp BP Pulse Ox 98.1 F 97 H 18 100/65 95 08/08/17 10:00 08/08/17 10:00 08/08/17 10:00 08/08/17 10:00 08/08/17 10:00 Intake and Output: 08/08/17 08/08/17 06:59 18:59 Intake Total 240 Balance 240 - Medications Medications: Current Medications Acetaminophen (Tylenol 325mg Tab) 650 mg PO Q4 PRN PRN Reason: Pain, Mild (1-3) Alprazolam (Xanax) 0.5 mg PO Q6 PRN; Protocol PRN Reason: Anxiety Stop: 08/12/17 14:46 Alprazolam (Xanax) 0.5 mg PO BID [facility] PRN Reason: Protocol Last Admin: 08/08/17 10:28 Dose: 0.5 mg Atorvastatin Calcium (Lipitor) 10 mg PO DIN [facility] Last Admin: 08/07/17 17:16 Dose: 10 mg Folic Acid (Folic Acid) 1 mg PO DAILY [facility] Last Admin: 08/08/17 10:22 Dose: 1 mg Magnesium Hydroxide (Milk Of Magnesia) 30 ml PO DAILY PRN PRN Reason: Constipation Methotrexate (Methotrexate) 17.5 mg PO LAURY [facility] Metoprolol Tartrate (Lopressor) 25 mg PO 0800 [facility] Last Admin: 08/08/17 08:00 Dose: 25 mg Ondansetron HCl (Zofran Tab) 4 mg PO Q6 PRN PRN Reason: Nausea/Vomiting Oxycodone/Acetaminophen (Percocet 5/325 Mg Tab) 1 tab PO Q4H PRN PRN Reason: Pain, moderate (4-7) Stop: 08/08/17 14:46 Last Admin: 08/06/17 21:58 Dose: 1 tab Pantoprazole Sodium (Protonix Ec Tab) 40 mg PO 0630 [facility] Last Admin: 08/08/17 05:48 Dose: Not Given Petrolatum (Desitin Maximum Strength Topical 40% Oint) 0 gm TOP Q4H PRN PRN Reason: Rash Last Admin: 08/06/17 09:27 Dose: 1 applic Sertraline HCl (Zoloft) 50 mg PO DAILY [facility] Last Admin: 08/08/17 10:22 Dose: 50 mg Tramadol HCl (Ultram) 50 mg PO Q6 PRN PRN Reason: Pain, Mild (1-3) Last Admin: 08/07/17 09:33 Dose: 50 mg - Labs Labs: 08/08/17 08:15 - Constitutional Appears: No Acute Distress - Head Exam Head Exam: NORMOCEPHALIC - Eye Exam Eye Exam: Normal appearance. absent: Scleral icterus - ENT Exam ENT Exam: Mucous Membranes Moist - Respiratory Exam Respiratory Exam: NORMAL BREATHING PATTERN. absent: Respiratory Distress - Cardiovascular Exam Cardiovascular Exam: +S1, +S2 - GI/Abdominal Exam GI & Abdominal Exam: Soft, Normal Bowel Sounds. absent: Guarding, Tenderness, Rebound - Extremities Exam Extremities Exam: absent: Calf Tenderness - Neurological Exam Neurological Exam: Alert, Awake, Oriented x3 - Skin Skin Exam: Dry, Warm Assessment and Plan - Assessment and Plan (Free Text) Assessment: Assessment: Large hiatal hernia, paraesophageal type Hepatic lesion, with cul-de-sac lesion,transvaginal sonogram on 08/01/17 showed a large pelvic mass residing in cul-de- sac consistent with solid tumor, s/p liver BX S/P egd found to hav H/H ulcerated lesion and gastric lesion s/p BX Large left-sided pleural effusion Near-syncope/weakness Rheumatoid arthritis on methotrexate Elevated tumor markers:tumor markers are elevated, CA 125 214, CA 199 114, ca 15 -3 46.1 Plan: Continue PPI Diet as tolerated FU liver BX and egd BX start Colace BID monitor H/H and for overt GIB oncology FU Seen and discussed w/ Dr. Crocker
[2017-08-08] MEDS: Oxycodone/Acetaminophen 5/325 mg Tab PO PRN (14:35)
--- NOTE | 2017-08-08 15:39 | CP.PCM.CON ---
History of Present Illness - History of Present Illness History of Present Illness: Heme-Onc Consult Note for Dr Garner Consult for: Metastatic Disease 76yo female PMHx RA on MTX, HTN, HLD, dysphagia, and hemorrhoids presented to [facility] [place] ED initially for a near syncopal episode and weakness that had progressively worsened days prior to admission. Patient found to have large left sided pleural effusion, and subsequent CT demonstrated gastric wall thickening, hiatial hernia, left sided pleural effusion with compressive atelectasis and hepatic lesions, as well as a mass in the cul-de-sac. Patient is s/p thoracentesis with 1.3L of sanguinous fluid and liver biopsy. Patient seen and examined at bedside. Tearful this AM and complained of abdominal pain, constipation, and pruritus. She denied acute complaints of fever, chills, headache, dizziness, chest pain, palpitations, cough, nausea, vomiting, dysuria , pain/swelling in legs b/l. PMHx: RA on MTX, HTN, HLD, dysphagia, and hemorrhoids PSurgHx: Appendectomy, cholecystectomy SocHx: +former tobacco user, - EtOH, denied illicits FamHX: Denied Meds: MAR reviewed Allergies: NKDA Review of Systems - Review of Systems All systems: reviewed and no additional remarkable complaints except Review of Systems: as per HPI Past Patient History - Infectious Disease Hx of Infectious Diseases: None - Past Social History Smoking Status: Former Smoker - CARDIAC Hx Cardiac Disorders: Yes Hx Hypertension: Yes - PULMONARY Hx Respiratory Disorders: No - NEUROLOGICAL Hx Neurological Disorder: Yes Hx Dizziness: Yes - HEENT Hx HEENT Problems: No - RENAL Hx Chronic Kidney Disease: No - ENDOCRINE/METABOLIC Hx Endocrine Disorders: No - HEMATOLOGICAL/ONCOLOGICAL Hx Blood Disorders: No - INTEGUMENTARY Hx Dermatological Problems: No - MUSCULOSKELETAL/RHEUMATOLOGICAL Hx Arthritis: Yes - GASTROINTESTINAL Hx Gastrointestinal Disorders: Yes (hemorrhoids/diarrhea/constipation) - GENITOURINARY/GYNECOLOGICAL Hx Reproductive Disorders: No - PSYCHIATRIC Hx Psychophysiologic Disorder: Yes Hx Anxiety: Yes Hx Depression: Yes - SURGICAL HISTORY Hx Surgeries: Yes - ANESTHESIA Hx Anesthesia: Yes Meds Allergies/Adverse Reactions: Allergies Allergy/AdvReac Type Severity Reaction Status Date / Time moxifloxacin [From Avelox] Allergy SWELLING Verified 08/07/17 10:56 - Medications Medications: Current Medications Acetaminophen (Tylenol 325mg Tab) 650 mg PO Q4 PRN PRN Reason: Pain, Mild (1-3) Alprazolam (Xanax) 0.5 mg PO Q6 PRN; Protocol PRN Reason: Anxiety Stop: 08/12/17 14:46 Alprazolam (Xanax) 0.5 mg PO BID [facility] PRN Reason: Protocol Last Admin: 08/08/17 10:28 Dose: 0.5 mg Atorvastatin Calcium (Lipitor) 10 mg PO DIN [facility] Last Admin: 08/07/17 17:16 Dose: 10 mg Docusate Sodium (Colace) 100 mg PO BID [facility] Folic Acid (Folic Acid) 1 mg PO DAILY [facility] Last Admin: 08/08/17 10:22 Dose: 1 mg Magnesium Hydroxide (Milk Of Magnesia) 30 ml PO DAILY PRN PRN Reason: Constipation Methotrexate (Methotrexate) 17.5 mg PO LAURY [facility] Metoprolol Tartrate (Lopressor) 25 mg PO 0800 [facility] Last Admin: 08/08/17 08:00 Dose: 25 mg Ondansetron HCl (Zofran Tab) 4 mg PO Q6 PRN PRN Reason: Nausea/Vomiting Pantoprazole Sodium (Protonix Ec Tab) 40 mg PO 0630 [facility] Last Admin: 08/08/17 05:48 Dose: Not Given Petrolatum (Desitin Maximum Strength Topical 40% Oint) 0 gm TOP Q4H PRN PRN Reason: Rash Last Admin: 08/06/17 09:27 Dose: 1 applic Sertraline HCl (Zoloft) 50 mg PO DAILY [facility] Last Admin: 08/08/17 10:22 Dose: 50 mg Tramadol HCl (Ultram) 50 mg PO Q6 PRN PRN Reason: Pain, Mild (1-3) Last Admin: 08/07/17 09:33 Dose: 50 mg Physical Exam - Constitutional Appears: Non-toxic, No Acute Distress - Head Exam Head Exam: ATRAUMATIC, NORMAL INSPECTION, NORMOCEPHALIC - Eye Exam Eye Exam: EOMI, Normal appearance, PERRL. absent: Conjunctival injection, Scleral icterus Pupil Exam: NORMAL ACCOMODATION - ENT Exam ENT Exam: Mucous Membranes Moist - Respiratory Exam Respiratory Exam: Clear to Auscultation Bilateral, NORMAL BREATHING PATTERN. absent: Accessory Muscle Use, Rales, Rhonchi, Wheezes, Respiratory Distress - Cardiovascular Exam Cardiovascular Exam: +S1, +S2 - GI/Abdominal Exam GI & Abdominal Exam: Normal Bowel Sounds, Soft. absent: Tenderness - Extremities Exam Extremities exam: Positive for: normal capillary refill, normal inspection, pedal pulses present. Negative for: pedal edema - Neurological Exam Neurological exam: Alert, CN II-XII Intact, Oriented x3 - Psychiatric Exam Psychiatric exam: Anxious - Skin Skin Exam: Dry, Intact, Normal Color, Warm Results - Vital Signs Recent Vital Signs: Last Vital Signs Temp 98.1 F 08/08/17 10:00 Pulse 97 H 08/08/17 10:00 Resp 18 08/08/17 10:00 BP 100/65 08/08/17 10:00 Pulse Ox 95 08/08/17 10:00 - Labs Result Diagrams: 08/08/17 08:15 Labs: Laboratory Results - last 24 hr 08/08/17 08:15 WBC 14.9 H RBC 3.98 Hgb 11.6 L Hct 36.4 MCV 91.5 MCH 29.1 MCHC 31.9 RDW 17.6 H Plt Count 310 MPV 9.2 Assessment & Plan - Assessment and Plan (Free Text) Assessment: 76yo female PMHx RA on MTX, HTN, HLD, dysphagia, and hemorrhoids presented to [facility] [place] ED initially for a near syncopal episode and weakness that had progressively worsened days prior to admission. During hospital course patient found to have large left sided pleural effusion, and subsequent CT demonstrated gastric wall thickening, hiatial hernia, left sided pleural effusion with compressive atelectasis and hepatic lesions, as well as a Transvaginal US demonstrated a solid mass in the cul-de-sac. Patient is s/p thoracentesis with 1.3L of sanguinous fluid by IR Dr. Holcomb. Elevated tumor markers: CA 125: 214, CA 19-9: 114, CA 15-3: 46.1, CEA 58.7. s/p Endoscopy found to have H/H ulcerated lesion and gastric lesion s/p BX. Above evaluation suggests primary of gastric vs ovarian vs colorectal vs lung ca with metastasis. Patient to continue PPI, diet as tolerated, f/u liver and EGD biopsy and f/u cytology. Labs and vitals reviewed. Monitor H&H and for overt bleed. Will speak to PMD regarding outpatient f/u with Dr. Garner. Discussed with Dr. Patsy Hernandez PGY2
--- NOTE | 2017-08-09 04:11 | PN ---
DATE: 08/08/2017 The patient was seen this Monday on telemetry floor in room 302, bed 2. SUBJECTIVE: She is resting comfortably in bed, in no acute distress, but fairly worried about her condition 00:24 awaiting path report and treatment plan. Later in the day, I spoke with Dr. Yee, pathologist to find the specimens from the esophageal biopsy and liver biopsy are looking like a squamous cell carcinoma, most likely esophageal CA with metastasis to liver. Late this evening Dr. Eddie Brannon had a telephone call, the telephone conference scheduled with the patient's daughter, they will be seeing her tomorrow. Dr. Garner also spoke with Dr. Yee and we will offer Oncology opinion in the near future so that we can organize a treatment plan for the future. Olvin Brannon MD
[2017-08-09] MEDS: Pantoprazole 40 mg EC Tab PO SCH (06:12)
[2017-08-09] MEDS ORDERED: Nystatin 100,000 Units/gm Topical Pow(15 gm) TOP SCH (18:00)
[2017-08-09] MEDS: Hydrocortisone 1% Cream (30 GM) TOP PRN (20:38)
--- NOTE | 2017-08-10 02:51 | PN ---
DATE: 08/09/2017 This is [facility]'s hospital visit on TCU. For Dr. Garner. SUBJECTIVE: The patient is a 76-year-old female seen lying awake in bed, reporting that she has a severe itch to her left abdomen, crotch area, and her back, for which she has no relief with Benadryl that was recently given. Unfortunately, the patient is now recently diagnosed as having stage IV EG junction cancer as per tissue diagnosis from her previously done biopsies by Dr. Francis Holcomb of the esophagus and liver dated most recent esophageal ulcerated lesion by Dr. Crocker, dated from 08/04/2017, repeated on 08/07/2017, showing ulcerated esophageal lesion with the final diagnosis that of esophageal ulcerated lesion invasive poorly differentiated carcinoma with squamous features. Special stain is positive for few fungal organisms. Her previous biopsy reported on 08/02/2017 for a biopsy of the right liver mass by Dr. Francis Holcomb showed liver CT-guided biopsy metastatic poorly differentiated carcinoma with metastatic carcinoma showing predominantly infiltrating cells and some malignant cells consistent with squamous differentiation and appears morphologically similar to the carcinoma seen in patient's esophageal biopsy. Based on the radiological findings and the esophageal biopsy material, esophageal origin is favored. She also had histochemical stains sent to [facility] dated 08/02/2017 from the liver mass large effusion diagnosis, the interpretation was in the favor poorly differentiated carcinoma from the upper gastrointestinal tract or pancreatic or biliary tree. However, the patient was also known to have had tumor marker testing including a CA15-3 at 46.1, CA19-9 of 114, CA125 at 214, with CEA of 58.7. With this, the patient's findings will be presented at Tumor Board by Dr. Garner with further recommendations forthcoming. Dr. Garner also spoke to the patient's daughter at length regarding the above findings with the patient told that these findings were still being evaluated with a final diagnosis to be given once the family is also aware of the prognosis and recommendations. However, the patient is now more concerned about the itch. She denies any significant pain except for some minimal discomfort to the left thoracentesis area with the cytologic fluid returning negative malignant cells. PHYSICAL EXAMINATION: VITAL SIGNS: Temperature 98.8, pulse 90, respirations 18, blood pressure 103/59, pulse ox 93%. HEENT: Unremarkable. Tongue is moist. NECK: Supple. HEART: Regular rate. Occasional ectopic beat. LUNGS: Decreased breath sounds on the left. ABDOMEN: Soft, nontender, obese. EXTREMITIES: No edema. SKIN: Warm and dry except for erythematous confluent skin change to the perineal area extending to the abdomen on the left and back on the left. The patient reports it is very pruritic. It should be noted that the patient has fair complexion and this may be allergic contact dermatitis possibly secondary to the detergents of the sheets. NEUROLOGIC: The patient is awake and alert. LABORATORY DATA: The patient's labs were done yesterday. White blood cell count of 14.9, hemoglobin 11.6, hematocrit 36.4, platelet count 310,000, with a chem metabolic panel from 08/04/2017 showing alkaline phosphatase of 177, AST of 55, with BUN of 39, normal creatinine of 1.1. Hepatitis A, B and C testing were all negative on 07/30/2017. ASSESSMENT: The assessment for this patient is that of stage IV esophageal cancer, newly diagnosed. History of rheumatoid arthritis, on methotrexate; hypertension, , recent syncope, pleural effusion, mass in the cul-de-sac, former smoker. PLAN: The plan for this patient after conversation with Dr. Garner is to continue present medical regimen with hydrocortisone cream p.r.n. for itch. We will also add Nizoral cream to the perineal area as this may be a dermatophyte inflammatory change along with contact dermatitis. Benadryl was ordered by Dr. Brannon. We will continue with Benadryl for itch. We will also ask for consult with Marissa Washington of Palliative Care after conversation with the patient's daughter, and we will arrange for PET CT scan as an outpatient as the patient is to be transferred to rehab facility in the near future. This is a complex patient with a comprehensive medically necessary and appropriate visit carried out in excess of 25 minutes urpm-ox-unbg time with the patient, with conversations held with the patient's daughter at length, with Dr. Garner, conversation with Dr. Brannon and with the staff on TCU, with medications called in as above for her new problem which is the pruritus with contact dermatitis versus dermatophyte infection. Martínez MD [facility] # [id number]
[2017-08-10] MEDS: Pantoprazole 40 mg EC Tab PO SCH (05:30)
--- NOTE | 2017-08-10 09:00 | CP.PCM.PN ---
Subjective - Date & Time of Evaluation Date of Evaluation: 08/10/17 Time of Evaluation: 14:31 - Subjective Subjective: Heme-Onc Progress note for Dr. Lindsey Patient seen and examined OOB to chair this morning. Nursing reported no acute events overnight. Patient in better spirits this AM. Denied acute complaints of headache, dizziness, chest pain, SOB, abd pain, nausea, vomiting, swelling in her legs b/l. Patient reports she feels like she is straining when having a BM. Tolerating PO intake. Objective - Vital Signs/Intake and Output Vital Signs (last 24 hours): Temp Pulse Resp BP Pulse Ox 97.6 F 95 H 18 133/81 93 L 08/10/17 06:00 08/10/17 06:00 08/10/17 06:00 08/10/17 06:00 08/10/17 06:00 Intake and Output: 08/10/17 08/10/17 06:59 18:59 Intake Total 240 Balance 240 - Medications Medications: Current Medications Acetaminophen (Tylenol 325mg Tab) 650 mg PO Q4 PRN PRN Reason: Pain, Mild (1-3) Alprazolam (Xanax) 0.5 mg PO Q6 PRN; Protocol PRN Reason: Anxiety Stop: 08/12/17 14:46 Alprazolam (Xanax) 0.5 mg PO BID [facility] PRN Reason: Protocol Last Admin: 08/09/17 17:16 Dose: 0.5 mg Atorvastatin Calcium (Lipitor) 10 mg PO DIN [facility] Last Admin: 08/09/17 17:13 Dose: 10 mg Diphenhydramine HCl (Benadryl) 25 mg PO Q4H PRN; Protocol PRN Reason: Itching / Pruritus Last Admin: 08/09/17 23:57 Dose: 25 mg Docusate Sodium (Colace) 100 mg PO BID [facility] Last Admin: 08/09/17 17:13 Dose: 100 mg Folic Acid (Folic Acid) 1 mg PO DAILY [facility] Last Admin: 08/09/17 09:55 Dose: 1 mg Hydrocortisone (Cortizone 1% Cream) 0 gm TOP TID PRN PRN Reason: Itching / Pruritus Last Admin: 08/09/17 20:38 Dose: 1 applic Ketoconazole (Nizoral) 0 gm TOP TID PRN PRN Reason: Itching / Pruritus Last Admin: 08/09/17 20:38 Dose: 1 applic Magnesium Hydroxide (Milk Of Magnesia) 30 ml PO DAILY PRN PRN Reason: Constipation Methotrexate (Methotrexate) 17.5 mg PO LAURY [facility] Metoprolol Tartrate (Lopressor) 25 mg PO 0800 [facility] Last Admin: 08/09/17 07:58 Dose: 25 mg Ondansetron HCl (Zofran Tab) 4 mg PO Q6 PRN PRN Reason: Nausea/Vomiting Pantoprazole Sodium (Protonix Ec Tab) 40 mg PO 0630 [facility] Last Admin: 08/10/17 05:30 Dose: 40 mg Sertraline HCl (Zoloft) 50 mg PO DAILY [facility] Last Admin: 08/09/17 09:55 Dose: 50 mg Tramadol HCl (Ultram) 50 mg PO Q6 PRN PRN Reason: Pain, Mild (1-3) Last Admin: 08/09/17 06:11 Dose: 50 mg - Labs Labs: 08/08/17 08:15 - Constitutional Appears: No Acute Distress - Head Exam Head Exam: ATRAUMATIC, NORMAL INSPECTION, NORMOCEPHALIC - Eye Exam Eye Exam: EOMI, Normal appearance. absent: Conjunctival injection, Scleral icterus - ENT Exam ENT Exam: Mucous Membranes Moist - Neck Exam Neck Exam: Full ROM - Respiratory Exam Respiratory Exam: NORMAL BREATHING PATTERN. absent: Accessory Muscle Use, Rales , Rhonchi, Wheezes, Respiratory Distress - Cardiovascular Exam Cardiovascular Exam: +S1, +S2 - GI/Abdominal Exam GI & Abdominal Exam: Soft, Normal Bowel Sounds. absent: Guarding, Rigid, Tenderness - Extremities Exam Extremities Exam: Normal Inspection. absent: Pedal Edema - Neurological Exam Neurological Exam: Alert, Awake, Oriented x3 - Psychiatric Exam Psychiatric exam: Normal Affect, Normal Mood Assessment and Plan - Assessment and Plan (Free Text) Assessment: 76yo female PMHx RA on MTX, HTN, HLD, dysphagia, and hemorrhoids presented to [facility] ED initially for a near syncopal episode and weakness that had progressively worsened days prior to admission. During hospital course patient found to have large left sided pleural effusion, and subsequent CT demonstrated gastric wall thickening, hiatial hernia, left sided pleural effusion with compressive atelectasis and hepatic lesions, as well as a Transvaginal US demonstrated a solid mass in the cul-de-sac. Patient is s/p thoracentesis with 1.3L of sanguinous fluid by IR Dr. Holcomb. Elevated tumor markers: CA 125: 214, CA 19-9: 114, CA 15-3: 46.1, CEA 58.7. s/p Endoscopy found to have H/H ulcerated lesion and gastric lesion s/p BX. Above evaluation suggests primary of gastric vs ovarian vs colorectal vs lung ca with metastasis. Patient to continue PPI, diet as tolerated. Esophageal biopsy of ulcerated lesion showed "invasive poorly differentiated carcinoma with squamous features". CT guided liver biopsy evident for "metastatic poorly differentiated carcinoma. Metastatic carcinoma showed predominantly infiltrating solid nests of malignant cells consistent with squamous differentiation and appeared histomorphologically similar to carcinoma seen in patient's esophageal biopsy. Based on radiologic findings and the esophageal biopsy material, an esophageal origin is favored." Left pleural fluid cytology was "negative for malignant cells" and diagnostic for "mesothelial cells and blood." Labs and vitals reviewed. Patient to be given Rx for PET-CT whole body scan. Will speak to PMD regarding outpatient f/u with Dr. Garner. Discussed with attending Rachelle Hernandez PGY2
--- NOTE | 2017-08-10 10:08 | PN ---
DATE: 08/09/2017 DAILY PROGRESS NOTE SUBJECTIVE: The patient is a 76-year-old female, who was admitted to [facility] with a diagnosis of weakness. She was found to have metastatic disease of the liver. She also had a left-sided pleural effusion and a mass in the cul-de-sac, thickening of the stomach on CAT scan. She underwent thoracentesis, biopsy of a metastatic liver lesion, underwent endoscopy with biopsy of gastric and esophageal ulcers. She was admitted to Transitional Care Unit on 08/05/2017 to await Pathology reports. Pathology report shows this to be a squamous cell carcinoma of esophageal origin. The case was discussed with the patient's daughter, who asked the patient not be told of esophageal cancer. The patient knows she has cancer, but her father had a long and painful from esophageal cancer and this same diagnosis would be very detrimental and disturbing to the patient. She is highly emotional, she cries frequently knowing her diagnosis. The case was discussed at length with the patient's daughter. They finally agreed for Dr. Garner, the oncologist to consult and set up a treatment plan. The patient is to be discharged from the Transitional Care Unit in approximately 4 days, at which time we are hoping she will go to a subacute care facility where she can continue to receive her chemotherapy. The patient is elderly. She is suffering from rheumatoid arthritis. She is very emotional a stressed and cannot live at home alone. It would be difficult to impossible for the patient to transport herself to and from chemotherapy if at home, besides just fulfilling her ADLs without assistance. So at this point, arrangements are being made for transfer to a subacute care facility and treatment plan to be established by Dr. Garner. Eddie Brannon MD BILL
--- NOTE | 2017-08-10 11:17 | CP.PCM.PN ---
Subjective - Date & Time of Evaluation Date of Evaluation: 08/10/17 Time of Evaluation: 08:00 - Subjective Subjective: GI progress note for Cecelia Mcelroy PGY2 Patient seen and examined at bedside. There were no acute overnight events as per nursing staff. Patient is resting in bed. She denies chest pain, shortness of breath, nausea/vomiting/diarrhea, fever or chills, numbness/tingling, dysuria or hematuria. Patient reports feeling itchy. Objective - Vital Signs/Intake and Output Vital Signs (last 24 hours): Temp Pulse Resp BP Pulse Ox 98.1 F 85 18 112/68 93 L 08/10/17 10:00 08/10/17 10:00 08/10/17 10:00 08/10/17 10:00 08/10/17 06:00 Intake and Output: 08/10/17 08/10/17 06:59 18:59 Intake Total 240 Balance 240 - Medications Medications: Current Medications Acetaminophen (Tylenol 325mg Tab) 650 mg PO Q4 PRN PRN Reason: Pain, Mild (1-3) Alprazolam (Xanax) 0.5 mg PO Q6 PRN; Protocol PRN Reason: Anxiety Stop: 08/12/17 14:46 Alprazolam (Xanax) 0.5 mg PO BID [facility] PRN Reason: Protocol Last Admin: 08/10/17 10:09 Dose: 0.5 mg Atorvastatin Calcium (Lipitor) 10 mg PO DIN [facility] Last Admin: 08/09/17 17:13 Dose: 10 mg Diphenhydramine HCl (Benadryl) 25 mg PO Q4H PRN; Protocol PRN Reason: Itching / Pruritus Last Admin: 08/09/17 23:57 Dose: 25 mg Docusate Sodium (Colace) 100 mg PO BID [facility] Last Admin: 08/10/17 09:15 Dose: Not Given Folic Acid (Folic Acid) 1 mg PO DAILY [facility] Last Admin: 08/10/17 09:16 Dose: 1 mg Hydrocortisone (Cortizone 1% Cream) 0 gm TOP TID PRN PRN Reason: Itching / Pruritus Last Admin: 08/09/17 20:38 Dose: 1 applic Ketoconazole (Nizoral) 0 gm TOP TID PRN PRN Reason: Itching / Pruritus Last Admin: 08/09/17 20:38 Dose: 1 applic Magnesium Hydroxide (Milk Of Magnesia) 30 ml PO DAILY PRN PRN Reason: Constipation Methotrexate (Methotrexate) 17.5 mg PO LAURY [facility] Last Admin: 08/10/17 10:06 Dose: 17.5 mg Metoprolol Tartrate (Lopressor) 25 mg PO 0800 [facility] Last Admin: 08/10/17 09:16 Dose: 25 mg Ondansetron HCl (Zofran Tab) 4 mg PO Q6 PRN PRN Reason: Nausea/Vomiting Pantoprazole Sodium (Protonix Ec Tab) 40 mg PO 0630 [facility] Last Admin: 08/10/17 05:30 Dose: 40 mg Sertraline HCl (Zoloft) 50 mg PO DAILY [facility] Last Admin: 08/10/17 10:11 Dose: 50 mg Tramadol HCl (Ultram) 50 mg PO Q6 PRN PRN Reason: Pain, Mild (1-3) Last Admin: 08/09/17 06:11 Dose: 50 mg - Labs Labs: 08/08/17 08:15 - Constitutional Appears: No Acute Distress - Head Exam Head Exam: ATRAUMATIC, NORMAL INSPECTION, NORMOCEPHALIC - Eye Exam Eye Exam: PERRL Pupil Exam: NORMAL ACCOMODATION - ENT Exam ENT Exam: Mucous Membranes Moist - Respiratory Exam Respiratory Exam: Clear to Ausculation Bilateral, NORMAL BREATHING PATTERN. absent: Rales, Rhonchi, Wheezes - Cardiovascular Exam Cardiovascular Exam: REGULAR RHYTHM, +S1, +S2. absent: Gallop, Rubs, Murmur - GI/Abdominal Exam GI & Abdominal Exam: Soft, Normal Bowel Sounds. absent: Rigid, Tenderness, Rebound - Neurological Exam Neurological Exam: Alert, Awake, CN II-XII Intact - Skin Skin Exam: Dry, Rash (under breast folds ), Warm Assessment and Plan - Assessment and Plan (Free Text) Assessment: This is a 76yo female with past medical history of RA (on methotrexate), HTN, HLD who was admitted for 1. Large pleural effusion s/p thoracentesis (negative for malignant cells) 2. Hepatic lesion s/p biopsy 3. Gastric lesion s/p biopsy, + for squamous cell 4. Pelvic mass seen on transvaginal U/S 5. RA on methotrexate 6. Constipation 7. Anxiety 8. Rash Plan: Hgb stable. No overt signs of bleeding. Nystatin was given for rash. Patient was given Solumedrol and Benadryl overnight. Continue stool softeners. Oncology is on consult. Will follow up recommendations. Continue PPI. Case seen, discussed and reviewed with Dr. Crocker. Cecelia Fuentes PGY2
--- NOTE | 2017-08-10 18:41 | CON ---
DATE: HISTORY OF PRESENT ILLNESS: Shortly, the patient is 76-year-old female with multiple medical issues. The patient brought herself to the hospital for evaluation of near-syncopal episode and weakness. The patient was found to have large left-sided pleural effusion and subsequently, CT scan demonstrated gastric wall thickening, hiatal hernia,atelectasis, and hepatic lesions as well as mass in cul-de-sac. The patient is status post thoracentesis, 1.3 liters. 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 Psych consult was called for evaluation of depressive symptoms and the patient had difficulty to adjust due to bad diagnosis and prognosis. The patient was seen and examined, discussed with Dr. Brannon in person. The patient presented to be tearful, depressed. The patient did not want to talk to this health science writer because the patient said that she did not know that this health science writer was called for consultation. The patient kept repeating that she is not crazy and she had that bad news talking about her esophageal cancer with metastasis. The patient was not receptive to supportive therapy, was tearful, was rejecting any help from this health science writer. The patient said that she had history of depression and anxiety and her primary care physician, Dr. Brannon knows about that and at present moment, she is still offended, discussed with the nursing staff. As per nursing staff, patient was aware that Psychiatry consultation was called, but the patient is forgetful, have episodes of confusion. Discussed with Dr. Brannon details. At present moment, prognosis is very poor. Hematology/Oncology also involved. Vital signs are stable. Temperature 97.6, pulse is 95, blood pressure 133/81, respirations 18, oxygen saturation is 93. Medications reviewed. Xanax 0.5 mg every 6 hours as needed, agree with that; Lipitor; Benadryl; Colace; folic acid; hydrocortisone; ketoconazole, methotrexate, Lopressor, Zofran, Protonix, Zoloft 50 mg daily and Ultram. Labs reviewed. WBC of 14.9, which was done on 08/08/2017. Microbiology done. Reports reviewed. MENTAL STATUS EXAM: The patient presented to be tearful, depressed, intermittent eye contact. Speech was overproductive. Mood described, I am depressed. I have all the reasons to be depressed. Affect was tearful, mood congruent. Thought process was coherent and goal directed. Thought content, the patient denied visual, auditory, or tactile hallucinations. Denied paranoid ideation. The patient denied thoughts of harming herself or others. Denied intent or plan. Insight and judgment seems to be fair. Impulses are well controlled. IMPRESSION: Rule out adjustment disorder, rule out mood disorder due to general medical condition, rule out major depressive disorder. PLAN: We will continue Zoloft. We will continue Xanax. Effective supportive therapy and empathic listening offered, but the patient was not receptive to that. This health science writer will follow up on this patient tomorrow, but the patient refused to see this health science writer. The patient seems to be not in any imminent danger to self or others. Thank you very much for letting me participate in care of your patient. Should you have any questions, give me a call back Holly Jerez MD
[2017-08-11] MEDS: Hydrocortisone 1% Cream (30 GM) TOP PRN ×2 (00:46→05:31)
[2017-08-11] MEDS: Pantoprazole 40 mg EC Tab PO SCH (05:30)
--- NOTE | 2017-08-11 10:25 | PN ---
DATE: 08/10/2017 The patient is seen this morning in Transitional Care Unit in room 302, bed 1. She was sitting out of bed in a chair, talking with psychiatrist Dr. Barrera. Overall, the patient is doing well, but her prognosis is poor given the diagnosis of metastatic esophageal CA. Dr. Eddie Brannon has been working with the family and the patient on discharge plan and collaborating that plan with outbound sales consultant, Dr. Garner. Olvin Brannon MD
--- NOTE | 2017-08-11 10:37 | CP.PCM.PN ---
Subjective - Date & Time of Evaluation Date of Evaluation: 08/11/17 Time of Evaluation: 11:00 - Subjective Subjective: Heme-Onc Progress note for Dr. Lindsey Patient seen and examined at bedside. Nursing reported no acute events overnight. Patient continues to complain of itching all over her body. She was also complaining of some soreness in her mouth. She continues to have intermittent abdominal pain. BM today had some scant blood but no melena. She denied acute complaints of fever, chills, headache, dizziness, chest pain, SOB, cough, nausea, vomiting, swelling in her legs b/l. Objective - Vital Signs/Intake and Output Vital Signs (last 24 hours): Temp Pulse Resp BP Pulse Ox 98.1 F 85 18 106/67 93 L 08/10/17 10:00 08/10/17 10:00 08/10/17 10:00 08/11/17 09:54 08/10/17 06:00 Intake and Output: 08/11/17 08/11/17 06:59 18:59 Intake Total 240 Balance 240 - Medications Medications: Current Medications Acetaminophen (Tylenol 325mg Tab) 650 mg PO Q4 PRN PRN Reason: Pain, Mild (1-3) Alprazolam (Xanax) 0.5 mg PO Q6 PRN; Protocol PRN Reason: Anxiety Stop: 08/12/17 14:46 Alprazolam (Xanax) 0.5 mg PO BID [facility] PRN Reason: Protocol Last Admin: 08/11/17 09:56 Dose: 0.5 mg Atorvastatin Calcium (Lipitor) 10 mg PO DIN [facility] Last Admin: 08/10/17 17:21 Dose: 10 mg Diphenhydramine HCl (Benadryl) 25 mg PO Q4H PRN; Protocol PRN Reason: Itching / Pruritus Last Admin: 08/11/17 05:28 Dose: 25 mg Docusate Sodium (Colace) 100 mg PO BID [facility] Last Admin: 08/11/17 09:54 Dose: Not Given Folic Acid (Folic Acid) 1 mg PO DAILY [facility] Last Admin: 08/11/17 09:54 Dose: 1 mg Hydrocortisone (Cortizone 1% Cream) 0 gm TOP TID PRN PRN Reason: Itching / Pruritus Last Admin: 08/11/17 05:31 Dose: 1 applic Ketoconazole (Nizoral) 0 gm TOP TID PRN PRN Reason: Itching / Pruritus Last Admin: 08/11/17 05:29 Dose: 1 applic Magnesium Hydroxide (Milk Of Magnesia) 30 ml PO DAILY PRN PRN Reason: Constipation Methotrexate (Methotrexate) 17.5 mg PO LAURY [facility] Last Admin: 08/10/17 10:06 Dose: 17.5 mg Metoprolol Tartrate (Lopressor) 25 mg PO 0800 [facility] Last Admin: 08/11/17 09:54 Dose: 25 mg Ondansetron HCl (Zofran Tab) 4 mg PO Q6 PRN PRN Reason: Nausea/Vomiting Pantoprazole Sodium (Protonix Ec Tab) 40 mg PO 0630 [facility] Last Admin: 08/11/17 05:30 Dose: 40 mg Sertraline HCl (Zoloft) 50 mg PO DAILY [facility] Last Admin: 08/10/17 10:11 Dose: 50 mg Tramadol HCl (Ultram) 50 mg PO Q6 PRN PRN Reason: Pain, Mild (1-3) Last Admin: 08/10/17 20:59 Dose: 50 mg - Labs Labs: 08/08/17 08:15 - Constitutional Appears: No Acute Distress - Head Exam Head Exam: ATRAUMATIC, NORMAL INSPECTION, NORMOCEPHALIC - Eye Exam Eye Exam: EOMI, Normal appearance, PERRL. absent: Conjunctival injection, Scleral icterus - ENT Exam ENT Exam: Mucous Membranes Dry Additional comments: oral thrush noted - Respiratory Exam Respiratory Exam: Clear to Ausculation Bilateral, NORMAL BREATHING PATTERN. absent: Accessory Muscle Use, Rales, Rhonchi, Wheezes, Respiratory Distress - Cardiovascular Exam Cardiovascular Exam: +S1, +S2 - GI/Abdominal Exam GI & Abdominal Exam: Soft. absent: Firm, Guarding, Tenderness - Rectal Exam Rectal Exam: Deferred - Extremities Exam Extremities Exam: Normal Capillary Refill. absent: Pedal Edema - Neurological Exam Neurological Exam: Alert, Awake, CN II-XII Intact, Oriented x3 - Psychiatric Exam Psychiatric exam: Anxious - Skin Skin Exam: Dry, Intact Assessment and Plan - Assessment and Plan (Free Text) Assessment: 76yo female PMHx RA on MTX, HTN, HLD, dysphagia, and hemorrhoids presented to [facility] initially for a near syncopal episode and weakness that had progressively worsened days prior to admission. During hospital course patient found to have large left sided pleural effusion, and subsequent CT demonstrated gastric wall thickening, hiatial hernia, left sided pleural effusion with compressive atelectasis and hepatic lesions, as well as a Transvaginal US demonstrated a solid mass in the cul-de-sac. Patient is s/p thoracentesis with 1.3L of sanguinous fluid by IR Dr. Holcomb. Elevated tumor markers: CA 125: 214, CA 19-9: 114, CA 15-3: 46.1, CEA 58.7. s/p Endoscopy found to have H/H ulcerated lesion and gastric lesion s/p BX. Above evaluation suggests primary of gastric vs ovarian vs colorectal vs lung ca with metastasis. Patient to continue PPI, diet as tolerated. Esophageal biopsy of ulcerated lesion showed "invasive poorly differentiated carcinoma with squamous features". CT guided liver biopsy evident for "metastatic poorly differentiated carcinoma. Metastatic carcinoma showed predominantly infiltrating solid nests of malignant cells consistent with squamous differentiation and appeared histomorphologically similar to carcinoma seen in patient's esophageal biopsy. Based on radiologic findings and the esophageal biopsy material, an esophageal origin is favored." Left pleural fluid cytology was "negative for malignant cells" and diagnostic for "mesothelial cells and blood." Patient started on mycelex for oral thrush and atarax of pruritus. Labs and vitals reviewed. Will speak to PMD regarding outpatient f/u with Dr. Garner. Upon discharge patient to go to [facility]. Palliative care consulted- appreciate rec. Discussed with attending Rachelle Hernandez PGY2
--- NOTE | 2017-08-11 15:42 | CP.PCM.CON ---
History of Present Illness - History of Present Illness History of Present Illness: Palliative consult requested by Dr Lisset Garner Reason: Advance Care planning 76 year of female with history of who initially presented to [facility] on 07/28/17 with weakness and shortness of breath. Work up revealed malignant pleural effusion,gastric and liver lesions. Biopsy of liver lesion consistent with esophageal carcinoma. She was admiited to [facility] on 08/05/17 for deconditioning. She complains of intermittent left shoulder pain. Vital Signs: 110/72, P 84, R 20 PMHx: metastatic esophageal cancer, anxiety,depression, deconditioning. Social History: Former smoker, no alcohol or drug use. Lives independently. Family History: Patients father had esophageal cancer. Advance Care Planning: The patient does not have an Advanced Directive. Review of Systems: As per HPI, otherwise negative 12 point review. Past Patient History - Infectious Disease Hx of Infectious Diseases: None - Past Social History Smoking Status: Former Smoker - CARDIAC Hx Cardiac Disorders: Yes Hx Hypertension: Yes - PULMONARY Hx Respiratory Disorders: No - NEUROLOGICAL Hx Neurological Disorder: Yes Hx Dizziness: Yes - HEENT Hx HEENT Problems: No - RENAL Hx Chronic Kidney Disease: No - ENDOCRINE/METABOLIC Hx Endocrine Disorders: No - HEMATOLOGICAL/ONCOLOGICAL Hx Blood Disorders: No - INTEGUMENTARY Hx Dermatological Problems: No - MUSCULOSKELETAL/RHEUMATOLOGICAL Hx Arthritis: Yes - GASTROINTESTINAL Hx Gastrointestinal Disorders: Yes (hemorrhoids/diarrhea/constipation) - GENITOURINARY/GYNECOLOGICAL Hx Reproductive Disorders: No - PSYCHIATRIC Hx Psychophysiologic Disorder: Yes Hx Anxiety: Yes Hx Depression: Yes - SURGICAL HISTORY Hx Surgeries: Yes - ANESTHESIA Hx Anesthesia: Yes Meds Allergies/Adverse Reactions: Allergies Allergy/AdvReac Type Severity Reaction Status Date / Time moxifloxacin [From Avelox] Allergy SWELLING Verified 08/07/17 10:56 - Medications Medications: Current Medications Acetaminophen (Tylenol 325mg Tab) 650 mg PO Q4 PRN PRN Reason: Pain, Mild (1-3) Alprazolam (Xanax) 0.5 mg PO Q6 PRN; Protocol PRN Reason: Anxiety Stop: 08/12/17 14:46 Alprazolam (Xanax) 0.5 mg PO BID [facility] PRN Reason: Protocol Last Admin: 08/11/17 09:56 Dose: 0.5 mg Atorvastatin Calcium (Lipitor) 10 mg PO DIN [facility] Last Admin: 08/10/17 17:21 Dose: 10 mg Clotrimazole (Mycelex Geraldine) 10 mg MT 5XD [facility] Last Admin: 08/11/17 13:25 Dose: 10 mg Docusate Sodium (Colace) 100 mg PO BID [facility] Last Admin: 08/11/17 09:54 Dose: Not Given Folic Acid (Folic Acid) 1 mg PO DAILY [facility] Last Admin: 08/11/17 09:54 Dose: 1 mg Hydrocortisone (Cortizone 1% Cream) 0 gm TOP TID PRN PRN Reason: Itching / Pruritus Last Admin: 08/11/17 05:31 Dose: 1 applic Hydroxyzine HCl (Atarax) 25 mg PO TID PRN PRN Reason: itchiness Ketoconazole (Nizoral) 0 gm TOP TID PRN PRN Reason: Itching / Pruritus Last Admin: 08/11/17 05:29 Dose: 1 applic Lidocaine (Lidoderm) 1 ea TD DAILY [facility] Magnesium Hydroxide (Milk Of Magnesia) 30 ml PO DAILY PRN PRN Reason: Constipation Methotrexate (Methotrexate) 17.5 mg PO LAURY [facility] Last Admin: 08/10/17 10:06 Dose: 17.5 mg Metoprolol Tartrate (Lopressor) 25 mg PO 0800 [facility] Last Admin: 08/11/17 09:54 Dose: 25 mg Ondansetron HCl (Zofran Tab) 4 mg PO Q6 PRN PRN Reason: Nausea/Vomiting Oxycodone HCl (Oxycodone Immediate Release Tab) 5 mg PO Q6H PRN PRN Reason: Pain, severe (8-10) Pantoprazole Sodium (Protonix Ec Tab) 40 mg PO 0630 [facility] Last Admin: 08/11/17 05:30 Dose: 40 mg Sertraline HCl (Zoloft) 50 mg PO DAILY [facility] Last Admin: 08/11/17 13:25 Dose: 50 mg Tramadol HCl (Ultram) 50 mg PO Q6 PRN PRN Reason: Pain, Mild (1-3) Last Admin: 08/10/17 20:59 Dose: 50 mg Physical Exam - Constitutional Appears: Cachectic, Chronically Ill - Head Exam Head Exam: NORMOCEPHALIC - Eye Exam Eye Exam: Normal appearance, PERRL - ENT Exam ENT Exam: Mucous Membranes Moist - Neck Exam Neck exam: Positive for: Normal Inspection - Respiratory Exam Respiratory Exam: Decreased Breath Sounds, NORMAL BREATHING PATTERN - Cardiovascular Exam Cardiovascular Exam: REGULAR RHYTHM, +S1, +S2 - GI/Abdominal Exam GI & Abdominal Exam: Normal Bowel Sounds, Soft - Extremities Exam Extremities exam: Positive for: normal capillary refill, pedal edema - Back Exam Back exam: NORMAL INSPECTION - Skin Skin Exam: Dry, Pallor - Additional Findings Additional findings: Palliative performance scale rating 40% Results - Vital Signs Recent Vital Signs: Last Vital Signs Temp 98.1 F 08/10/17 10:00 Pulse 85 08/10/17 10:00 Resp 18 08/10/17 10:00 BP 106/67 08/11/17 09:54 Pulse Ox 93 L 08/10/17 06:00 - Labs Result Diagrams: 08/08/17 08:15 Assessment & Plan - Assessment and Plan (Free Text) Assessment: 76 year old female with history of anxiety/depression,metestatic esophageal cancer who is admitted to [facility] for deconditioning. She is weak, forgetful at times.Affect flat. She denies pain at this time. The patient knows she has cancer but doesn't want to discus at this time I spoke at [facility] with flora Ayala via phone. Daughter aware of mother' s diagnosis. Daughter states that her mother knows she has cancer but daughter does not want to mother to know it is esophageal in origin. Daughter prefers that it be referred to as stomach cancer. Patients father of esophageal cancer and patient is left with upsetting memories of him during his illness. Daughter and I spoke at length about goals of care. Initial plan is for [facility] with possible log term placement. Family has not decided whether they will.pursue treatment. Awaiting final pathology testing and follow up with oncology before making this decision. Advance care planning also discussed. Daughter asked that I do not speak with her mother about DNR/DNI. Daughter states that Dr Brannon will have this discussion with mother. Psychosocial support provided. Time spent in goals of care and advance care planning discussion with family, 30 minutes Plan: Goals of care and advance care planning Deconditioning: PT/ OT.Transfer to [facility] Esophageal Cancer; Follow up with oncology as out patient Anxiety / Depression: Follow up with Psychiatry: Continue Xanax , Zoloft Pain: Oxycodone 5 mg IR as needed .
[2017-08-11] MEDS: oxyCODONE 5 mg Immediate Release Tab PO PRN (17:00)
--- NOTE | 2017-08-11 22:01 | PN ---
DATE: 08/11/2017 FOLLOWUP NOTE SUBJECTIVE: The patient was seen and examined today. Shortly, the patient is a 76-year-old female. The patient was diagnosed with esophageal carcinoma with multiple metastasis. Patient was seen initially yesterday. Please see consultation note for more detailed information. Patient is still not receptive for supportive therapy as well as medication management. The patient refused to talk to this writer producer. The patient is on Xanax 0.5 mg twice a day scheduled as well as Zoloft 50 mg daily, Ultram 50 mg every 6 hours p.r.n. The patient was seen by palliative care. Advanced directive discussed with the patient. Overall prognosis is very poor. Please see notes for more detailed information. MENTAL STATUS EXAMINATION: The patient appears to be tearful, depressed, but refused to talk to this writer producer, does not want this writer producer to adjust any medications. The patient denied thoughts of harming herself or others. Denied intent or plan. The patient is not psychotic, but at times confused. Insight and judgment seems to be improving, but still limited. Impulses are well controlled. IMPRESSION: Mood disorder due to general medical condition, rule out adjustment disorder. PLAN: Continue current management. Continue current medications. This writer producer tried her best to provide emotional support and empathic listening, but the patient was not receptive. We will sign off. The patient deemed not to be in any imminent danger to self or others. Advanced directive was discussed with the patient by palliative care. Case was discussed with Dr. Brannon, primary care physician. Thank you very much for letting me participate in care of your patient. Holly Jerez MD
[2017-08-12] MEDS: Pantoprazole 40 mg EC Tab PO SCH (05:31)
[2017-08-12] MEDS: oxyCODONE 5 mg Immediate Release Tab PO PRN (10:00)
[2017-08-12] MEDS ORDERED: Lidocaine 5% Patch TD SCH (10:00)
[2017-08-12] MEDS ORDERED: Hydrocortisone 2.5% Rectal Cream(30 gm) PR SCH (11:00)
[2017-08-12 11:11] VITALS: BP 128/81; PULSE 83; RESP 20; TEMP 97.5; O2SAT 91
== END 2017-08-12 11:29 | DRG 375 ==
LOC: TRCU 14:23
PROVIDERS: ADMIT Internal Medicine; ATTEND Internal Medicine
PROC: F07Z9FZ Gait Training/Functional Ambulation Treatment using Assistive, Adaptive, Supportive or Protective Equipment (ICD-10-PCS; principal; 2017-08-06)
PROC: F07M6ZZ Therapeutic Exercise Treatment of Musculoskeletal System - Whole Body (ICD-10-PCS; 2017-08-06)
PROC: F08Z1ZZ Dressing Techniques Treatment (ICD-10-PCS; 2017-08-06)
PROC: F08Z2ZZ Grooming/Personal Hygiene Treatment (ICD-10-PCS; 2017-08-06)
PROC: F08Z0ZZ Bathing/Showering Techniques Treatment (ICD-10-PCS; 2017-08-06)
PROC: F08Z4ZZ Home Management Treatment (ICD-10-PCS; 2017-08-06)
DX: C15.9 Malignant neoplasm of esophagus, unspecified (principal); C16.9 Malignant neoplasm of stomach, unspecified; C78.7 Secondary malignant neoplasm of liver and intrahepatic bile duct; J91.0 Malignant pleural effusion; B37.0 Candidal stomatitis; J98.11 Atelectasis; K22.10 Ulcer of esophagus without bleeding; F06.30 Mood disorder due to known physiological condition, unspecified; F41.9 Anxiety disorder, unspecified; E78.5 Hyperlipidemia, unspecified; I10 Essential (primary) hypertension; K25.9 Gastric ulcer, unspecified as acute or chronic, without hemorrhage or perforation; K44.9 Diaphragmatic hernia without obstruction or gangrene; K59.00 Constipation, unspecified; L29.9 Pruritus, unspecified; M06.9 Rheumatoid arthritis, unspecified; Z79.899 Other long term (current) drug therapy; Z87.891 Personal history of nicotine dependence; Z80.0 Family history of malignant neoplasm of digestive organs